=== PATIENT | female | born 1995 | race Caucasian/White ===

== ENCOUNTER 2016-05-24 08:54 | Emergency (ER) | payer SELFPAY ==
[2016-05-24 09:43] LABS: BASO % 0.5 % (0.0-1.0); EOS # 0.2 K/mm3 (0.0-0.50); EOS % 4.1 % (0.0-3.0); LARGE UNSTAINED CELL # 0.2 K/mm3 (0.0-0.4); LARGE UNSTAINED CELL % 3.9 % (0.0-4.0); LYMPH # 2.5 K/mm3 (1.5-6.5); LYMPH % 40.5 % (24.0-44.0); MEAN CORPUSCULAR HEMOGLOBIN 29.9 pg (27.0-33.0); MEAN CORPUSCULAR HGB CONC 34.6 g/dl (32.0-36.5); MEAN CORPUSCULAR VOLUME 86.2 fl (80.0-96.0); MONO # 0.3 K/mm3 (0.0-0.8); MONO % 5.3 % (0.0-5.0); NEUTROPHILS # 2.8 K/mm3 (1.8-7.7); NEUTROPHILS % 45.7 % (36.0-66.0); PLATELET COUNT, AUTOMATED 255 k/mm3 (150-450); RED CELL DISTRIBUTION WIDTH 12.7 % (11.5-14.5); WHITE BLOOD COUNT 6.2 K/mm3 (4.0-10.0)
[2016-05-24] MEDS ORDERED: KETOROLAC 30 MG/ML VIAL (J1885) As Ordered ONE (09:44)
[2016-05-24] MEDS ORDERED: ONDANSETRON 4MG/2ML VIAL (J2405) As Ordered ONE (09:44)
[2016-05-24 10:00] LABS: ALBUMIN 4.3 GM/DL (3.2-5.2); ALBUMIN/GLOBULIN RATIO 1.26 (1.00-1.93); ALKALINE PHOSPHATASE 97 U/L (45-117); ALT/SGPT 25 U/L (12-78); AMYLASE 36 U/L (25-115); ANION GAP 11 MEQ/L (8-16); AST/SGOT 16 U/L (15-37); BILIRUBIN,DIRECT 0.1 MG/DL (0.0-0.2); BILIRUBIN,TOTAL 0.4 MG/DL (0.2-1.0); BLOOD UREA NITROGEN 12 MG/DL (7-18); CALCIUM LEVEL 9.3 MG/DL (8.5-10.1); CARBON DIOXIDE LEVEL 28 MEQ/L (21-32); CHLORIDE LEVEL 104 MEQ/L (98-107); CREATININE FOR GFR 0.85 MG/DL (0.55-1.02); GLOMERULAR FILTRATION RATE > 60.0 (>60); GLUCOSE, FASTING 87 MG/DL (70-105); POTASSIUM SERUM 3.6 MEQ/L (3.5-5.1); SODIUM LEVEL 143 MEQ/L (136-145); TOTAL PROTEIN 7.7 GM/DL (6.4-8.2)
--- NOTE | 2016-05-24 10:35 | REP ---
Right upper quadrant sonography: History: Biliary colic. Findings: Scanning through the right upper quadrant of the abdomen demonstrates a normal sized thin-walled gallbladder without evidence of stone or polyp. Common bile duct is normal measuring 0.3 cm in greatest diameter. No focal liver lesion is seen. Pancreas is unremarkable. There is no evidence of ascites or right renal abnormality. The right kidney measures 9.7 x 5.0 x 3.9 cm. Impression: Negative right upper quadrant sonography. Signed by Stephen Jang MD 05/24/2016 10:26 A
--- NOTE | 2016-05-24 11:41 | EDDOCDS ---
Physician Documentation [facility] Name: Sandie Ledbetter Age: 20 yrs Sex: Female : 1995 Arrival Date: 05/24/2016 Time: 08:54 Bed I2 / M2 Private MD: Disposition: 05/24/16 11:32 Discharged to Home/Self Care. Impression: Nausea with vomiting, unspecified, Diarrhea, unspecified, Upper abdominal pain, unspecified - ruq. - Condition is Stable. - Discharge Instructions: Diarrhea, Nausea and Vomiting. - Prescriptions for ZOFRAN ODT 4 mg Oral - dissolve 1 tablet by ORAL route 3-4 times daily As needed do not chew, do not swallow whole; 20 tablet. - Medication Reconciliation, Local Pharmacy Hours form. - Follow up: Emergency Department; When: As needed; Reason: Worsening of conditions. [facility]; When: Call to arrange an appointment; Reason: Recheck today's complaints, Continuance of care, To establish care. - Problem is new. - Symptoms have improved. - Notes: YOUR LABWORK AND ULTRASOUND DID NOT SHOW ANY ABNORMALITIES TODAY. PLEASE FOLLOW UP WITH PRIMARY CARE IN THE NEXT FEW DAYS TO RECHECK YOUR SYMPTOMS. ANY WORSENING SYMPTOMS, PLEASE RETURN TO THE ER. Historical: - Allergies: no known allergies; - Home Meds: 1. none - PMHx: none; - PSHx: none; - Social history: Smoking status: Patient uses tobacco products, heavy tobacco smoker. No barriers to communication noted, Speaks appropriately for age. - Family history: Not pertinent. - : The pt / caregiver states he / she is not on anticoagulants. Home medication list is obtained from the patient. - Exposure Risk Screening:: None identified. 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 (152.40 cm) (R); Pain 0/10; 11:33 BP 117 / 67; Pulse 80; Resp 18; Temp 98.4; Pulse Ox 98% ; jam1 09:03 Body Mass Index 23.83 (55.34 kg, 152.40 cm) ml6 MDM: 09:21 NS 0.9% 1000 ml IV at bolus once ordered. dt4 09:21 Ondansetron 4 mg IVP once ordered. dt4 09:21 ketorolac 30 mg IVP once ordered. dt4 09:21 IV Saline Lock ordered. dt4 09:21 Undress patient appropriately for examination ordered. dt4 09:22 Amylase Ordered. EDMS 09:22 Basic Metabolic Profile Ordered. EDMS 09:22 CBC with Diff Ordered. EDMS 09:22 Lipase Ordered. EDMS 09:22 Liver Profile Ordered. EDMS 09:22 Urinalysis Ordered. EDMS 09:22 CRP Ordered. EDMS 09:22 Urine Culture Ordered. EDMS 09:22 US Abd Limited Ordered. EDMS 09:22 NOTHING BY MOUTH+DIET ordered. EDMS 09:44 Consult PFS/PSA/Sprinkler Installer ordered. dt4 10:21 Financial registration complete. lg 10:52 [facility] Payment Agreement was scanned into [employer] and attached to record. lg 11:15 Consult PFS/PSA/Sprinkler Installer complete. dls Administered Medications: 09:45 Drug: NS 0.9% 1000 ml [sodium chloride 0.9 % intravenous solution] Route: IV; Rate: ttb bolus; Site: left antecubital; 09:50 Drug: ketorolac 30 mg [ketorolac 30 mg/mL (1 mL) injection solution (1 mL)] Route: IVP; ttb Site: left antecubital; 09:52 Drug: Ondansetron 4 mg [ondansetron HCl 2 mg/mL intravenous solution (2 mL)] Route: ttb IVP; Site: left antecubital; Signatures: Dispatcher [facility] Sahara Frank, RN RN dls Parrish Padgett, Reg Reg lg Leif Arana RN RN ml6 Samantha Mary RN RN ttb Glenna Rosenberg PA-C PA-C dt4 The chart was reviewed and I authenticate all verbal orders and agree with the evaluation and treatment provided.Attachments: 10:52 [facility] Payment Agreement lg MTDD
--- NOTE | 2016-05-24 11:41 | EDDOCDS ---
Nurse's Notes [facility] Name: Sandie Ledbetter Age: 20 yrs Sex: Female : 1995 Arrival Date: 05/24/2016 Time: 08:54 Bed I2 / M2 Private MD: Diagnosis: Nausea with vomiting, unspecified;Diarrhea, unspecified;Upper abdominal pain, unspecified-ruq Presentation: 05/24 09:02 Presenting complaint: Patient states: states n/v/d x 2 days, denies abd pain. Adult ml6 Sepsis Screening: The patient does not have new or worsening altered mentation. Patient's respiratory rate is less than 22. Systolic blood pressure is greater than 100. Patient has a qSOFA score of 0- Negative Sepsis Screen. Suicide/Homicide risk assessment- the patient denies having any suicidal and/or homicidal ideations and does not present with any other emotional, behavioral or mental health complaints. Status: Patient is not a security services manager or dependent. Transition of care: patient was not received from another setting of care. 09:02 Acuity: FANY Level 4 ml6 09:02 Method Of Arrival: Walkin/Carried/Asstd ml6 09:25 Acuity level changed due to complexity of care. ml6 09:25 Acuity: FANY Level 3 ml6 Triage Assessment: 09:04 General: Appears in no apparent distress, Behavior is appropriate for age, cooperative. ml6 Pain: Denies pain. HIV screening NA for this visit Offered previously. GI: Abdomen is flat, non- distended Bowel sounds present X 4 quads. Abd is soft and non tender X 4 quads. Reports diarrhea, nausea, vomiting. 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 none - PMHx: none; - PSHx: none; - Social history: Smoking status: Patient uses tobacco products, heavy tobacco smoker. No barriers to communication noted, Speaks appropriately for age. - Family history: Not pertinent. - : The pt / caregiver states he / she is not on anticoagulants. Home medication list is obtained from the patient. - Exposure Risk Screening:: None identified. Screenin:41 Screening information is obtained from the patient. Fall risk: No risks identified. ttb Assistance ADL's: requires no assistance with activities of daily living. Abuse/DV Screen: The patient / caregiver reports he/she is: not in a situation that causes fear, pain or injury. Nutritional screening: No deficits noted. Advance Directives: Currently, there is no health care proxy. home support is adequate. Assessment: 09:41 General: Appears in no apparent distress, uncomfortable, well nourished, well groomed, ttb Behavior is appropriate for age, cooperative, pleasant. Pain: Location: lower abd/pelvis. Neurological: Level of Consciousness is awake, alert, Oriented to person, place, time, Speech is normal, Facial symmetry appears normal. Cardiovascular: Heart tones S1 S2 present Chest pain is denied. Respiratory: No deficits noted. Airway is patent Respiratory effort is even, unlabored, Breath sounds are clear bilaterally. Denies cough, shortness of breath. GI: Bowel sounds present X 4 quads. Reports diarrhea, lower abdominal pain, nausea, vomiting, Denies constipation, intolerance of fluids. : Denies burning with urination, urinary frequency, urgency. Derm: Skin is normal. Injury Description: No known injury. 09:50 General: pt given meds as ordered. Pt emotional regarding home situations/social ttb situations. PA aware and PSA consult ordered. Pt interested in speaking to someone. . 11:21 General: Edis Wood PSA in to speak with pt.. ann Social Work Consult: 11:31 Social Work Note: Pt presented c/o general illness. 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 Pt also reports she has no insurance at this time. Pt denies SI/HI, is accompanied by her mother. Pt provided with referrals, emergency #'s. No further intervention required at this time. Vital Signs: 09:03 BP 116 / 75; Pulse 92; Resp 16; Temp 98.1(O); Pulse Ox 99% on R/A; Weight 55.34 kg (R); ml6 Height 5 ft. (152.40 cm) (R); Pain 0/10; 11:33 BP 117 / 67; Pulse 80; Resp 18; Temp 98.4; Pulse Ox 98% ; jam1 09:03 Body Mass Index 23.83 (55.34 kg, 152.40 cm) ml6 Vitals: 09:03 Log In Time: May 24, 2016 at 08:54. ml6 ED Course: 08:57 Patient visited by Don Urias Reg. mpb 08:57 Patient moved to Waiting mpb 09:03 Triage Initiated ml6 09:04 Sahara Murray RN is Primary Nurse. ml6 09:04 Patient moved to I2 / M2 ml6 09:13 Glenna Rosenberg PA-C is PHCP. dt4 09:13 Mitul Doyle MD is Attending Physician. dt4 09:13 Patient visited by Glenna Rosenberg PA-C. dt4 09:41 The patient / caregiver is instructed regarding the plan of care and ED course. Patient ttb has correct armband on for positive identification. Placed in gown. Call light in reach. Side rails up X 1. 09:41 Inserted peripheral IV: 20gauge IV in left antecubital area and blood collected. ttb Patient tolerated the procedure well. Labs drawn. (by ED staff). Urine collected. Clean catch specimen. 09:46 Urinalysis Sent. jam1 09:46 Urine Culture Sent. jam1 09:52 Patient visited by Samantha Mary RN. ttb 09:57 Patient visited by Samantha Mary RN. ttb 10:04 Patient moved to Ultrasound br3 10:08 Patient has correct armband on for positive identification. Call light in reach. Side jam1 rails up X 1. Door closed. 10:18 Patient moved to I2 / M2 br3 10:40 US Abd Limited Returned. EDMS 10:52 [facility] [place] Payment Agreement was scanned into [employer] and attached to record. lg 11:01 Patient visited by Sahara Murray RN. dls 11:32 [facility] is Referral Physician. dt4 11:39 Discontinued IV lock intact, bleeding controlled, pressure dressing applied, No dls redness/swelling at site. 11:40 No procedures done that require assistance. dls Administered Medications: 09:45 Drug: NS 0.9% 1000 ml [sodium chloride 0.9 % intravenous solution] Route: IV; Rate: ttb bolus; Site: left antecubital; 09:50 Drug: ketorolac 30 mg [ketorolac 30 mg/mL (1 mL) injection solution (1 mL)] Route: IVP; ttb Site: left antecubital; 09:52 Drug: Ondansetron 4 mg [ondansetron HCl 2 mg/mL intravenous solution (2 mL)] Route: ttb IVP; Site: left antecubital; Order Results: Lab Order: Amylase; SPEC'05/24/16 09:34 Test: AMYLASE; Value: 36; Range: 25-115; Units: U/L; Status: F Lab Order: Basic Metabolic Profile; SPEC05/24/16 09:34 Test: GLUCOSE, FASTING; Value: 87; Range: 70-105; Units: MG/DL; Status: F Test: BLOOD UREA NITROGEN; Value: 12; Range: 7-18; Units: MG/DL; Status: F Test: CREATININE FOR GFR; Value: 0.85; Range: 0.55-1.02; Units: MG/DL; Status: F Test: GLOMERULAR FILTRATION RATE; Value: > 60.0; Range: >60; Status: F Test: SODIUM LEVEL; Value: 143; Range: 136-145; Units: MEQ/L; Status: F Test: POTASSIUM SERUM; Value: 3.6; Range: 3.5-5.1; Units: MEQ/L; Status: F Test: CHLORIDE LEVEL; Value: 104; Range: 98-107; Units: MEQ/L; Status: F Test: CARBON DIOXIDE LEVEL; Value: 28; Range: 21-32; Units: MEQ/L; Status: F Test: ANION GAP; Value: 11; Range: 8-16; Units: MEQ/L; Status: F Test: CALCIUM LEVEL; Value: 9.3; Range: 8.5-10.1; Units: MG/DL; Status: F Test Note: ; Units are mL/min/1.73 m2 Chronic Kidney Disease Staging per NKF: Stage I & II GFR >=60 Normal to Mildly Decreased Stage III GFR 30-59 Moderately Decreased Stage IV GFR 15-29 Severely Decreased Stage V GFR <15 Very Little GFR Left ESRD GFR <15 on PAPER TWISTER Lab Order: CBC with Diff; SPEC05/24/16 09:34 Test: WHITE BLOOD COUNT; Value: 6.2; Range: 4.0-10.0; Units: K/mm3; Status: F Test: RED BLOOD COUNT; Value: 4.78; Range: 4.00-5.40; Units: M/mm3; Status: F Test: HEMOGLOBIN; Value: 14.3; Range: 12.0-16.0; Units: g/dl; Status: F Test: HEMATOCRIT; Value: 41.2; Range: 36.0-47.0; Units: %; Status: F Test: MEAN CORPUSCULAR VOLUME; Value: 86.2; Range: 80.0-96.0; Units: fl; Status: F Test: MEAN CORPUSCULAR HEMOGLOBIN; Value: 29.9; Range: 27.0-33.0; Units: pg; Status: F Test: MEAN CORPUSCULAR HGB CONC; Value: 34.6; Range: 32.0-36.5; Units: g/dl; Status: F Test: RED CELL DISTRIBUTION WIDTH; Value: 12.7; Range: 11.5-14.5; Units: %; Status: F Test: PLATELET COUNT, AUTOMATED; Value: 255; Range: 150-450; Units: k/mm3; Status: F Test: NEUTROPHILS %; Value: 45.7; Range: 36.0-66.0; Units: %; Status: F Test: LYMPH %; Value: 40.5; Range: 24.0-44.0; Units: %; Status: F Test: MONO %; Value: 5.3; Range: 0.0-5.0; Abnormal: Above high normal; Units: %; Status: F Test: EOS %; Value: 4.1; Range: 0.0-3.0; Abnormal: Above high normal; Units: %; Status: F Test: BASO %; Value: 0.5; Range: 0.0-1.0; Units: %; Status: F Test: LARGE UNSTAINED CELL %; Value: 3.9; Range: 0.0-4.0; Units: %; Status: F Test: NEUTROPHILS #; Value: 2.8; Range: 1.8-7.7; Units: K/mm3; Status: F Test: LYMPH #; Value: 2.5; Range: 1.5-6.5; Units: K/mm3; Status: F Test: MONO #; Value: 0.3; Range: 0.0-0.8; Units: K/mm3; Status: F Test: EOS #; Value: 0.2; Range: 0.0-0.50; Units: K/mm3; Status: F Test: BASO #; Value: 0.0; Range: 0.0-0.2; Units: K/mm3; Status: F Test: LARGE UNSTAINED CELL #; Value: 0.2; Range: 0.0-0.4; Units: K/mm3; Status: F Lab Order: Lipase; SPEC' 05/24/16 09:34 Test: LIPASE; Value: 125; Range: 73-393; Units: U/L; Status: F Lab Order: Liver Profile; [facility]'M 05/24/16 09:34 Test: AST/SGOT; Value: 16; Range: 15-37; Units: U/L; Status: F Test: ALT/SGPT; Value: 25; Range: 12-78; Units: U/L; Status: F Test: ALKALINE PHOSPHATASE; Value: 97; Range: 45-117; Units: U/L; Status: F Test: BILIRUBIN,TOTAL; Value: 0.4; Range: 0.2-1.0; Units: MG/DL; Status: F Test: BILIRUBIN,DIRECT; Value: 0.1; Range: 0.0-0.2; Units: MG/DL; Status: F Test: TOTAL PROTEIN; Value: 7.7; Range: 6.4-8.2; Units: GM/DL; Status: F Test: ALBUMIN; Value: 4.3; Range: 3.2-5.2; Units: GM/DL; Status: F Test: ALBUMIN/GLOBULIN RATIO; Value: 1.26; Range: 1.00-1.93; Status: F Lab Order: Urinalysis; [facility]' 05/24/16 09:34 Test: APPEARANCE, URINE; Value: CLOUDY; Range: CLEAR; Abnormal: Above high normal; Status: F Test: COLOR, URINE; Value: RANDELL; Range: YELLOW; Status: F Test: PH,URINE; Value: 6.0; Range: 5.0-9.0; Units: UNITS; Status: F Test: SPECIFIC GRAVITY URINE AUTO; Value: 1.027; Range: 1.002-1.035; Status: F Test: PROTEIN, URINE AUTO; Value: 2+; Range: NEGATIVE; Abnormal: Above high normal; Units: mg/dL; Status: F Test: GLUCOSE, URINE (UA) AUTO; Value: NEGATIVE; Range: NEGATIVE; Units: mg/dL; Status: F Test: KETONE, URINE AUTO; Value: NEGATIVE; Range: NEGATIVE; Units: mg/dL; Status: F Test: UROBILINOGEN, URINE AUTO; Value: 0.2; Range: 0.0-2.0; Units: mg/dL; Status: F Test: BILIRUBIN, URINE AUTO; Value: NEGATIVE; Range: NEGATIVE; Status: F Test: NITRITE, URINE AUTO; Value: NEGATIVE; Range: NEGATIVE; Status: F Test: LEUKOCYTE ESTERASE, URINE AUTO; Value: NEGATIVE; Range: NEGATIVE; Status: F Test: BLOOD, URINE BLOOD; Value: 3+; Range: NEGATIVE; Abnormal: Above high normal; Status: F Test: WBC, URINE AUTO; Value: 9; Range: 0-3; Abnormal: Above high normal; Units: /HPF; Status: F Test: RBC, URINE AUTO; Value: 141; Range: 0-3; Abnormal: Above high normal; Units: /HPF; Status: F Test: BACTERIA, URINE AUTO; Value: 1+; Range: NEGATIVE; Abnormal: Above high normal; Status: F Test: SQUAMOUS EPITHELIAL CELL UR AU; Value: 6; Range: 0-6; Units: /HPF; Status: F Test: MUCUS, URINE; Value: LARGE; Range: NEGATIVE; Status: F Test: HYALINE CAST, URINE AUTO; Value: 0; Range: 0-1; Units: /LPF; Status: F Lab Order: CRP; SPEC'M 05/24/16 09:34 Test: C REACTIVE PROTEIN QUANTITATIV; Value: 1.13; Range: 0.00-0.30; Abnormal: Above high normal; Units: MG/DL; Status: F Radiology Order: US Abd Limited Test: US Abd Limited REASON FOR EXAMINATION: Biliary Colic; Right upper quadrant sonography:; ; History: Biliary colic.; ; Findings: Scanning through the right upper quadrant of the abdomen demonstrates; a normal sized thin-walled gallbladder without evidence of stone or polyp.; Common bile duct is normal measuring 0.3 cm in greatest diameter. No focal liver; lesion is seen. Pancreas is unremarkable. There is no evidence of ascites or; right renal abnormality. The right kidney measures 9.7 x 5.0 x 3.9 cm.; ; Impression:; ; Negative right upper quadrant sonography.; ; ; Signed by; Stephen Jang MD 05/24/2016 10:26 A; Outcome: 09:41 Ultrasound Study completed. ttb 11:32 Discharge ordered by Provider. dt4 11:39 Discharge Assessment: Patient awake, alert and oriented x 3. No cognitive and/or dls functional deficits noted. Patient verbalized understanding of disposition instructions. patient administered narcotics - no. The following High Risk Discharge criteria are identified: None. Discharged to home ambulatory, with family. Condition: stable. Discharge instructions given to patient, Instructed on discharge instructions, follow up and referral plans. Demonstrated understanding of instructions, Pt was receptive of discharge instructions/ teaching. Property sent home with patient. 11:40 Patient left the ED. dls Signatures: Dispatcher [employer] EDMS Sahara Murray, RN RN dls Dolly Rondon, CHEMICAL EDUCATOR CHEMICAL EDUCATOR jam1 Edis Wood, PSA PSA ac Parrish Padgett, Reg Reg lg Leif Arana RN RN ml6 Toya Washington br3 Samantha Mary, TIFFANIE RN ttb Glenna Rosenberg, CORINAN PACory dt4 Don Urias, Reg Reg mpb MTDD
--- NOTE | 2016-05-24 11:44 | EDDOCDS ---
Physician Documentation [facility] Name: Sandie Ledbetter Age: 20 yrs Sex: Female : 1995 Arrival Date: 05/24/2016 Time: 08:54 Bed I2 / M2 Private MD: Disposition: 05/24/16 11:32 Discharged to Home/Self Care. Impression: Nausea with vomiting, unspecified, Diarrhea, unspecified, Upper abdominal pain, unspecified - ruq. - Condition is Stable. - Discharge Instructions: Diarrhea, Nausea and Vomiting. - Prescriptions for ZOFRAN ODT 4 mg Oral - dissolve 1 tablet by ORAL route 3-4 times daily As needed do not chew, do not swallow whole; 20 tablet. - Medication Reconciliation, Work Release Form - 2 day, Local Pharmacy Hours form. - Follow up: Emergency Department; When: As needed; Reason: Worsening of conditions. [facility]; When: Call to arrange an appointment; Reason: Recheck today's complaints, Continuance of care, To establish care. - Problem is new. - Symptoms have improved. - Notes: YOUR LABWORK AND ULTRASOUND DID NOT SHOW ANY ABNORMALITIES TODAY. PLEASE FOLLOW UP WITH PRIMARY CARE IN THE NEXT FEW DAYS TO RECHECK YOUR SYMPTOMS. ANY WORSENING SYMPTOMS, PLEASE RETURN TO THE ER. Historical: - Allergies: no known allergies; - Home Meds: 1. none - PMHx: none; - PSHx: none; - Social history: Smoking status: Patient uses tobacco products, heavy tobacco smoker. No barriers to communication noted, Speaks appropriately for age. - Family history: Not pertinent. - : The pt / caregiver states he / she is not on anticoagulants. Home medication list is obtained from the patient. - Exposure Risk Screening:: None identified. 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 (152.40 cm) (R); Pain 0/10; 11:33 BP 117 / 67; Pulse 80; Resp 18; Temp 98.4; Pulse Ox 98% ; jam1 09:03 Body Mass Index 23.83 (55.34 kg, 152.40 cm) ml6 MDM: 09:21 NS 0.9% 1000 ml IV at bolus once ordered. dt4 09:21 Ondansetron 4 mg IVP once ordered. dt4 09:21 ketorolac 30 mg IVP once ordered. dt4 09:21 IV Saline Lock ordered. dt4 09:21 Undress patient appropriately for examination ordered. dt4 09:22 Amylase Ordered. EDMS 09:22 Basic Metabolic Profile Ordered. EDMS 09:22 CBC with Diff Ordered. EDMS 09:22 Lipase Ordered. EDMS 09:22 Liver Profile Ordered. EDMS 09:22 Urinalysis Ordered. EDMS 09:22 CRP Ordered. EDMS 09:22 Urine Culture Ordered. EDMS 09:22 US Abd Limited Ordered. EDMS 09:22 NOTHING BY MOUTH+DIET ordered. EDMS 09:44 Consult PFS/PSA/Wrecker Driver ordered. dt4 10:21 Financial registration complete. lg 10:52 [facility] Payment Agreement was scanned into [employer] and attached to record. lg 11:15 Consult PFS/PSA/Wrecker Driver complete. dls Administered Medications: 09:45 Drug: NS 0.9% 1000 ml [sodium chloride 0.9 % intravenous solution] Route: IV; Rate: ttb bolus; Site: left antecubital; 09:50 Drug: ketorolac 30 mg [ketorolac 30 mg/mL (1 mL) injection solution (1 mL)] Route: IVP; ttb Site: left antecubital; 09:52 Drug: Ondansetron 4 mg [ondansetron HCl 2 mg/mL intravenous solution (2 mL)] Route: ttb IVP; Site: left antecubital; Signatures: Dispatcher [employer] Sahara Frank RN RN dls Parrish Padgett, Reg Reg lg Leif Arana RN RN ml6 Samantha Mary RN RN ttb Glenna Rosenberg PA-C PA-C dt4 The chart was reviewed and I authenticate all verbal orders and agree with the evaluation and treatment provided.Attachments: 10:52 [facility] Payment Agreement lg MTDD
--- NOTE | 2016-05-24 11:44 | EDDOCDS ---
Nurse's Notes [facility] Name: Sandie Ledbetter Age: 20 yrs Sex: Female : 1995 Arrival Date: 05/24/2016 Time: 08:54 Bed I2 / M2 Private MD: Diagnosis: Nausea with vomiting, unspecified;Diarrhea, unspecified;Upper abdominal pain, unspecified-ruq Presentation: 05/24 09:02 Presenting complaint: Patient states: states n/v/d x 2 days, denies abd pain. Adult ml6 Sepsis Screening: The patient does not have new or worsening altered mentation. Patient's respiratory rate is less than 22. Systolic blood pressure is greater than 100. Patient has a qSOFA score of 0- Negative Sepsis Screen. Suicide/Homicide risk assessment- the patient denies having any suicidal and/or homicidal ideations and does not present with any other emotional, behavioral or mental health complaints. Status: Patient is not a surgical services coordinator or dependent. Transition of care: patient was not received from another setting of care. 09:02 Acuity: FANY Level 4 ml6 09:02 Method Of Arrival: Walkin/Carried/Asstd ml6 09:25 Acuity level changed due to complexity of care. ml6 09:25 Acuity: FANY Level 3 ml6 Triage Assessment: 09:04 General: Appears in no apparent distress, Behavior is appropriate for age, cooperative. ml6 Pain: Denies pain. HIV screening NA for this visit Offered previously. GI: Abdomen is flat, non- distended Bowel sounds present X 4 quads. Abd is soft and non tender X 4 quads. Reports diarrhea, nausea, vomiting. 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 none - PMHx: none; - PSHx: none; - Social history: Smoking status: Patient uses tobacco products, heavy tobacco smoker. No barriers to communication noted, Speaks appropriately for age. - Family history: Not pertinent. - : The pt / caregiver states he / she is not on anticoagulants. Home medication list is obtained from the patient. - Exposure Risk Screening:: None identified. Screenin:41 Screening information is obtained from the patient. Fall risk: No risks identified. ttb Assistance ADL's: requires no assistance with activities of daily living. Abuse/DV Screen: The patient / caregiver reports he/she is: not in a situation that causes fear, pain or injury. Nutritional screening: No deficits noted. Advance Directives: Currently, there is no health care proxy. home support is adequate. Assessment: 09:41 General: Appears in no apparent distress, uncomfortable, well nourished, well groomed, ttb Behavior is appropriate for age, cooperative, pleasant. Pain: Location: lower abd/pelvis. Neurological: Level of Consciousness is awake, alert, Oriented to person, place, time, Speech is normal, Facial symmetry appears normal. Cardiovascular: Heart tones S1 S2 present Chest pain is denied. Respiratory: No deficits noted. Airway is patent Respiratory effort is even, unlabored, Breath sounds are clear bilaterally. Denies cough, shortness of breath. GI: Bowel sounds present X 4 quads. Reports diarrhea, lower abdominal pain, nausea, vomiting, Denies constipation, intolerance of fluids. : Denies burning with urination, urinary frequency, urgency. Derm: Skin is normal. Injury Description: No known injury. 09:50 General: pt given meds as ordered. Pt emotional regarding home situations/social ttb situations. PA aware and PSA consult ordered. Pt interested in speaking to someone. . 11:21 General: Edis Wood PSA in to speak with pt.. ann Social Work Consult: 11:31 Social Work Note: Pt presented c/o general illness. 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 Pt also reports she has no insurance at this time. Pt denies SI/HI, is accompanied by her mother. Pt provided with referrals, emergency #'s. No further intervention required at this time. Vital Signs: 09:03 BP 116 / 75; Pulse 92; Resp 16; Temp 98.1(O); Pulse Ox 99% on R/A; Weight 55.34 kg (R); ml6 Height 5 ft. (152.40 cm) (R); Pain 0/10; 11:33 BP 117 / 67; Pulse 80; Resp 18; Temp 98.4; Pulse Ox 98% ; jam1 09:03 Body Mass Index 23.83 (55.34 kg, 152.40 cm) ml6 Vitals: 09:03 Log In Time: May 24, 2016 at 08:54. ml6 ED Course: 08:57 Patient visited by Don Urias Reg. mpb 08:57 Patient moved to Waiting mpb 09:03 Triage Initiated ml6 09:04 Sahara Murray RN is Primary Nurse. ml6 09:04 Patient moved to I2 / M2 ml6 09:13 Glenna Rosenberg PA-C is PHCP. dt4 09:13 Mitul Doyle MD is Attending Physician. dt4 09:13 Patient visited by Glenna Rosenberg PA-C. dt4 09:41 The patient / caregiver is instructed regarding the plan of care and ED course. Patient ttb has correct armband on for positive identification. Placed in gown. Call light in reach. Side rails up X 1. 09:41 Inserted peripheral IV: 20gauge IV in left antecubital area and blood collected. ttb Patient tolerated the procedure well. Labs drawn. (by ED staff). Urine collected. Clean catch specimen. 09:46 Urinalysis Sent. jam1 09:46 Urine Culture Sent. jam1 09:52 Patient visited by Samantha Mary RN. ttb 09:57 Patient visited by Samantha Mary RN. ttb 10:04 Patient moved to Ultrasound br3 10:08 Patient has correct armband on for positive identification. Call light in reach. Side jam1 rails up X 1. Door closed. 10:18 Patient moved to I2 / M2 br3 10:40 US Abd Limited Returned. EDMS 10:52 [facility] was scanned into EpicTopic and attached to record. lg 11:01 Patient visited by Sahara Murray RN. dls 11:32 [facility] is Referral Physician. dt4 11:39 Discontinued IV lock intact, bleeding controlled, pressure dressing applied, No dls redness/swelling at site. 11:40 No procedures done that require assistance. dls Administered Medications: 09:45 Drug: NS 0.9% 1000 ml [sodium chloride 0.9 % intravenous solution] Route: IV; Rate: ttb bolus; Site: left antecubital; 09:50 Drug: ketorolac 30 mg [ketorolac 30 mg/mL (1 mL) injection solution (1 mL)] Route: IVP; ttb Site: left antecubital; 09:52 Drug: Ondansetron 4 mg [ondansetron HCl 2 mg/mL intravenous solution (2 mL)] Route: ttb IVP; Site: left antecubital; Order Results: Lab Order: Amylase; SPEC'05/24/16 09:34 Test: AMYLASE; Value: 36; Range: 25-115; Units: U/L; Status: F Lab Order: Basic Metabolic Profile; SPEC05/24/16 09:34 Test: GLUCOSE, FASTING; Value: 87; Range: 70-105; Units: MG/DL; Status: F Test: BLOOD UREA NITROGEN; Value: 12; Range: 7-18; Units: MG/DL; Status: F Test: CREATININE FOR GFR; Value: 0.85; Range: 0.55-1.02; Units: MG/DL; Status: F Test: GLOMERULAR FILTRATION RATE; Value: > 60.0; Range: >60; Status: F Test: SODIUM LEVEL; Value: 143; Range: 136-145; Units: MEQ/L; Status: F Test: POTASSIUM SERUM; Value: 3.6; Range: 3.5-5.1; Units: MEQ/L; Status: F Test: CHLORIDE LEVEL; Value: 104; Range: 98-107; Units: MEQ/L; Status: F Test: CARBON DIOXIDE LEVEL; Value: 28; Range: 21-32; Units: MEQ/L; Status: F Test: ANION GAP; Value: 11; Range: 8-16; Units: MEQ/L; Status: F Test: CALCIUM LEVEL; Value: 9.3; Range: 8.5-10.1; Units: MG/DL; Status: F Test Note: ; Units are mL/min/1.73 m2 Chronic Kidney Disease Staging per NKF: Stage I & II GFR >=60 Normal to Mildly Decreased Stage III GFR 30-59 Moderately Decreased Stage IV GFR 15-29 Severely Decreased Stage V GFR <15 Very Little GFR Left ESRD GFR <15 on FIRE SAFETY DIRECTOR Lab Order: CBC with Diff; SPEC05/24/16 09:34 Test: WHITE BLOOD COUNT; Value: 6.2; Range: 4.0-10.0; Units: K/mm3; Status: F Test: RED BLOOD COUNT; Value: 4.78; Range: 4.00-5.40; Units: M/mm3; Status: F Test: HEMOGLOBIN; Value: 14.3; Range: 12.0-16.0; Units: g/dl; Status: F Test: HEMATOCRIT; Value: 41.2; Range: 36.0-47.0; Units: %; Status: F Test: MEAN CORPUSCULAR VOLUME; Value: 86.2; Range: 80.0-96.0; Units: fl; Status: F Test: MEAN CORPUSCULAR HEMOGLOBIN; Value: 29.9; Range: 27.0-33.0; Units: pg; Status: F Test: MEAN CORPUSCULAR HGB CONC; Value: 34.6; Range: 32.0-36.5; Units: g/dl; Status: F Test: RED CELL DISTRIBUTION WIDTH; Value: 12.7; Range: 11.5-14.5; Units: %; Status: F Test: PLATELET COUNT, AUTOMATED; Value: 255; Range: 150-450; Units: k/mm3; Status: F Test: NEUTROPHILS %; Value: 45.7; Range: 36.0-66.0; Units: %; Status: F Test: LYMPH %; Value: 40.5; Range: 24.0-44.0; Units: %; Status: F Test: MONO %; Value: 5.3; Range: 0.0-5.0; Abnormal: Above high normal; Units: %; Status: F Test: EOS %; Value: 4.1; Range: 0.0-3.0; Abnormal: Above high normal; Units: %; Status: F Test: BASO %; Value: 0.5; Range: 0.0-1.0; Units: %; Status: F Test: LARGE UNSTAINED CELL %; Value: 3.9; Range: 0.0-4.0; Units: %; Status: F Test: NEUTROPHILS #; Value: 2.8; Range: 1.8-7.7; Units: K/mm3; Status: F Test: LYMPH #; Value: 2.5; Range: 1.5-6.5; Units: K/mm3; Status: F Test: MONO #; Value: 0.3; Range: 0.0-0.8; Units: K/mm3; Status: F Test: EOS #; Value: 0.2; Range: 0.0-0.50; Units: K/mm3; Status: F Test: BASO #; Value: 0.0; Range: 0.0-0.2; Units: K/mm3; Status: F Test: LARGE UNSTAINED CELL #; Value: 0.2; Range: 0.0-0.4; Units: K/mm3; Status: F Lab Order: Lipase; SPEC' 05/24/16 09:34 Test: LIPASE; Value: 125; Range: 73-393; Units: U/L; Status: F Lab Order: Liver Profile; [facility] 05/24/16 09:34 Test: AST/SGOT; Value: 16; Range: 15-37; Units: U/L; Status: F Test: ALT/SGPT; Value: 25; Range: 12-78; Units: U/L; Status: F Test: ALKALINE PHOSPHATASE; Value: 97; Range: 45-117; Units: U/L; Status: F Test: BILIRUBIN,TOTAL; Value: 0.4; Range: 0.2-1.0; Units: MG/DL; Status: F Test: BILIRUBIN,DIRECT; Value: 0.1; Range: 0.0-0.2; Units: MG/DL; Status: F Test: TOTAL PROTEIN; Value: 7.7; Range: 6.4-8.2; Units: GM/DL; Status: F Test: ALBUMIN; Value: 4.3; Range: 3.2-5.2; Units: GM/DL; Status: F Test: ALBUMIN/GLOBULIN RATIO; Value: 1.26; Range: 1.00-1.93; Status: F Lab Order: Urinalysis; [facility] 05/24/16 09:34 Test: APPEARANCE, URINE; Value: CLOUDY; Range: CLEAR; Abnormal: Above high normal; Status: F Test: COLOR, URINE; Value: RANDELL; Range: YELLOW; Status: F Test: PH,URINE; Value: 6.0; Range: 5.0-9.0; Units: UNITS; Status: F Test: SPECIFIC GRAVITY URINE AUTO; Value: 1.027; Range: 1.002-1.035; Status: F Test: PROTEIN, URINE AUTO; Value: 2+; Range: NEGATIVE; Abnormal: Above high normal; Units: mg/dL; Status: F Test: GLUCOSE, URINE (UA) AUTO; Value: NEGATIVE; Range: NEGATIVE; Units: mg/dL; Status: F Test: KETONE, URINE AUTO; Value: NEGATIVE; Range: NEGATIVE; Units: mg/dL; Status: F Test: UROBILINOGEN, URINE AUTO; Value: 0.2; Range: 0.0-2.0; Units: mg/dL; Status: F Test: BILIRUBIN, URINE AUTO; Value: NEGATIVE; Range: NEGATIVE; Status: F Test: NITRITE, URINE AUTO; Value: NEGATIVE; Range: NEGATIVE; Status: F Test: LEUKOCYTE ESTERASE, URINE AUTO; Value: NEGATIVE; Range: NEGATIVE; Status: F Test: BLOOD, URINE BLOOD; Value: 3+; Range: NEGATIVE; Abnormal: Above high normal; Status: F Test: WBC, URINE AUTO; Value: 9; Range: 0-3; Abnormal: Above high normal; Units: /HPF; Status: F Test: RBC, URINE AUTO; Value: 141; Range: 0-3; Abnormal: Above high normal; Units: /HPF; Status: F Test: BACTERIA, URINE AUTO; Value: 1+; Range: NEGATIVE; Abnormal: Above high normal; Status: F Test: SQUAMOUS EPITHELIAL CELL UR AU; Value: 6; Range: 0-6; Units: /HPF; Status: F Test: MUCUS, URINE; Value: LARGE; Range: NEGATIVE; Status: F Test: HYALINE CAST, URINE AUTO; Value: 0; Range: 0-1; Units: /LPF; Status: F Lab Order: CRP; SPEC'M 05/24/16 09:34 Test: C REACTIVE PROTEIN QUANTITATIV; Value: 1.13; Range: 0.00-0.30; Abnormal: Above high normal; Units: MG/DL; Status: F Radiology Order: US Abd Limited Test: US Abd Limited REASON FOR EXAMINATION: Biliary Colic; Right upper quadrant sonography:; ; History: Biliary colic.; ; Findings: Scanning through the right upper quadrant of the abdomen demonstrates; a normal sized thin-walled gallbladder without evidence of stone or polyp.; Common bile duct is normal measuring 0.3 cm in greatest diameter. No focal liver; lesion is seen. Pancreas is unremarkable. There is no evidence of ascites or; right renal abnormality. The right kidney measures 9.7 x 5.0 x 3.9 cm.; ; Impression:; ; Negative right upper quadrant sonography.; ; ; Signed by; Stephen Jang MD 05/24/2016 10:26 A; Outcome: 09:41 Ultrasound Study completed. ttb 11:32 Discharge ordered by Provider. dt4 11:39 Discharge Assessment: Patient awake, alert and oriented x 3. No cognitive and/or dls functional deficits noted. Patient verbalized understanding of disposition instructions. patient administered narcotics - no. The following High Risk Discharge criteria are identified: None. Discharged to home ambulatory, with family. Condition: stable. Discharge instructions given to patient, Instructed on discharge instructions, follow up and referral plans. Demonstrated understanding of instructions, Pt was receptive of discharge instructions/ teaching. Property sent home with patient. 11:40 Patient left the ED. dls 11:44 Patient left the ED. dls Signatures: Dispatcher Med[employer] EDMS Sahara Murray, RN RN dls Dolly Rondon, AREA FIELD PERSON AREA FIELD PERSON jam1 Edis Wood, PSA PSA ac Parrish Padgett, Reg Reg lg Leif Arana, TIFFANIE RN ml6 Toya Washington br3 Samantha Mary, TIFFANIE RN ttb Glenna Rosenberg, PA-Adrianna PA-Adrianna dt4 Don Urias, Reg Reg mpb MTDD
--- NOTE | 2016-05-26 12:48 | EDDOCDS ---
Physician Documentation [facility] Name: Sandie Ledbetter Age: 20 yrs Sex: Female : 1995 Arrival Date: 05/24/2016 Time: 08:54 Bed I2 / M2 Private MD: Disposition: 05/24/16 11:32 Discharged to Home/Self Care. Impression: Nausea with vomiting, unspecified, Diarrhea, unspecified, Upper abdominal pain, unspecified - ruq. - Condition is Stable. - Discharge Instructions: Diarrhea, Nausea and Vomiting. - Prescriptions for ZOFRAN ODT 4 mg Oral - dissolve 1 tablet by ORAL route 3-4 times daily As needed do not chew, do not swallow whole; 20 tablet. - Medication Reconciliation, Work Release Form - 2 day, Local Pharmacy Hours form. - Follow up: Emergency Department; When: As needed; Reason: Worsening of conditions. [facility]: [facility]; When: Call to arrange an appointment; Reason: Recheck today's complaints, Continuance of care, To establish care. - Problem is new. - Symptoms have improved. - Notes: YOUR LABWORK AND ULTRASOUND DID NOT SHOW ANY ABNORMALITIES TODAY. PLEASE FOLLOW UP WITH PRIMARY CARE IN THE NEXT FEW DAYS TO RECHECK YOUR SYMPTOMS. ANY WORSENING SYMPTOMS, PLEASE RETURN TO THE ER. Historical: - Allergies: no known allergies; - Home Meds: 1. none - PMHx: none; - PSHx: none; - Social history: Smoking status: Patient uses tobacco products, heavy tobacco smoker. No barriers to communication noted, Speaks appropriately for age. - Family history: Not pertinent. - : The pt / caregiver states he / she is not on anticoagulants. Home medication list is obtained from the patient. - Exposure Risk Screening:: None identified. 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 (152.40 cm) (R); Pain 0/10; 11:33 BP 117 / 67; Pulse 80; Resp 18; Temp 98.4; Pulse Ox 98% ; jam1 09:03 Body Mass Index 23.83 (55.34 kg, 152.40 cm) ml6 MDM: 09:21 NS 0.9% 1000 ml IV at bolus once ordered. dt4 09:21 Ondansetron 4 mg IVP once ordered. dt4 09:21 ketorolac 30 mg IVP once ordered. dt4 09:21 IV Saline Lock ordered. dt4 09:21 Undress patient appropriately for examination ordered. dt4 09:22 Amylase Ordered. EDMS 09:22 Basic Metabolic Profile Ordered. EDMS 09:22 CBC with Diff Ordered. EDMS 09:22 Lipase Ordered. EDMS 09:22 Liver Profile Ordered. EDMS 09:22 Urinalysis Ordered. EDMS 09:22 CRP Ordered. EDMS 09:22 Urine Culture Ordered. EDMS 09:22 US Abd Limited Ordered. EDMS 09:22 NOTHING BY MOUTH+DIET ordered. EDMS 09:44 Consult PFS/PSA/Day Worker ordered. dt4 10:21 Financial registration complete. lg 10:52 [facility] [place] Payment Agreement was scanned into Directworks and attached to record. lg 11:15 Consult PFS/PSA/Day Worker complete. dls 12:04 T-Sheet-- Draft Copy was scanned into Directworks and attached to record. [facility] 12:23 Radiology Report was scanned into Directworks and attached to record. gb Administered Medications: 09:45 Drug: NS 0.9% 1000 ml [sodium chloride 0.9 % intravenous solution] Route: IV; Rate: ttb bolus; Site: left antecubital; 09:50 Drug: ketorolac 30 mg [ketorolac 30 mg/mL (1 mL) injection solution (1 mL)] Route: IVP; ttb Site: left antecubital; 09:52 Drug: Ondansetron 4 mg [ondansetron HCl 2 mg/mL intravenous solution (2 mL)] Route: ttb IVP; Site: left antecubital; Signatures: Dispatcher MedHost EDMS Sahara Murray RN RN dls Shreya Sevilla, Reg Reg gb Parrish Padgett, Reg Reg lg Leif Arana RN RN ml6 Samantha Mary RN RN ttb Glenna Rosenberg PA-C PACory dt4 Margaret Miller [facility] The chart was reviewed and I authenticate all verbal orders and agree with the evaluation and treatment provided.Attachments: 10:52 [facility] Payment Agreement lg 12:04 T-Sheet-- Draft Copy se Chart Complete MTDD
--- NOTE | 2016-05-26 12:48 | EDDOCDS ---
Physician Documentation [facility] Name: Sandie Ledbetter Age: 20 yrs Sex: Female : 1995 Arrival Date: 05/24/2016 Time: 08:54 Bed I2 / M2 Private MD: Disposition: 05/24/16 11:32 Discharged to Home/Self Care. Impression: Nausea with vomiting, unspecified, Diarrhea, unspecified, Upper abdominal pain, unspecified - ruq. - Condition is Stable. - Discharge Instructions: Diarrhea, Nausea and Vomiting. - Prescriptions for ZOFRAN ODT 4 mg Oral - dissolve 1 tablet by ORAL route 3-4 times daily As needed do not chew, do not swallow whole; 20 tablet. - Medication Reconciliation, Work Release Form - 2 day, Local Pharmacy Hours form. - Follow up: Emergency Department; When: As needed; Reason: Worsening of conditions. [facility]: [facility]; When: Call to arrange an appointment; Reason: Recheck today's complaints, Continuance of care, To establish care. - Problem is new. - Symptoms have improved. - Notes: YOUR LABWORK AND ULTRASOUND DID NOT SHOW ANY ABNORMALITIES TODAY. PLEASE FOLLOW UP WITH PRIMARY CARE IN THE NEXT FEW DAYS TO RECHECK YOUR SYMPTOMS. ANY WORSENING SYMPTOMS, PLEASE RETURN TO THE ER. Historical: - Allergies: no known allergies; - Home Meds: 1. none - PMHx: none; - PSHx: none; - Social history: Smoking status: Patient uses tobacco products, heavy tobacco smoker. No barriers to communication noted, Speaks appropriately for age. - Family history: Not pertinent. - : The pt / caregiver states he / she is not on anticoagulants. Home medication list is obtained from the patient. - Exposure Risk Screening:: None identified. 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 (152.40 cm) (R); Pain 0/10; 11:33 BP 117 / 67; Pulse 80; Resp 18; Temp 98.4; Pulse Ox 98% ; jam1 09:03 Body Mass Index 23.83 (55.34 kg, 152.40 cm) ml6 MDM: 09:21 NS 0.9% 1000 ml IV at bolus once ordered. dt4 09:21 Ondansetron 4 mg IVP once ordered. dt4 09:21 ketorolac 30 mg IVP once ordered. dt4 09:21 IV Saline Lock ordered. dt4 09:21 Undress patient appropriately for examination ordered. dt4 09:22 Amylase Ordered. EDMS 09:22 Basic Metabolic Profile Ordered. EDMS 09:22 CBC with Diff Ordered. EDMS 09:22 Lipase Ordered. EDMS 09:22 Liver Profile Ordered. EDMS 09:22 Urinalysis Ordered. EDMS 09:22 CRP Ordered. EDMS 09:22 Urine Culture Ordered. EDMS 09:22 US Abd Limited Ordered. EDMS 09:22 NOTHING BY MOUTH+DIET ordered. EDMS 09:44 Consult PFS/PSA/Director Of Video Analytics ordered. dt4 10:21 Financial registration complete. lg 10:52 [facility] Payment Agreement was scanned into Genm[employer] and attached to record. lg 11:15 Consult PFS/PSA/Director Of Video Analytics complete. dls 12:04 T-Sheet-- Draft Copy was scanned into Genmab and attached to record. [facility] 12:23 Radiology Report was scanned into Genmab and attached to record. gb Administered Medications: 09:45 Drug: NS 0.9% 1000 ml [sodium chloride 0.9 % intravenous solution] Route: IV; Rate: ttb bolus; Site: left antecubital; 09:50 Drug: ketorolac 30 mg [ketorolac 30 mg/mL (1 mL) injection solution (1 mL)] Route: IVP; ttb Site: left antecubital; 09:52 Drug: Ondansetron 4 mg [ondansetron HCl 2 mg/mL intravenous solution (2 mL)] Route: ttb IVP; Site: left antecubital; Signatures: Dispatcher [employer] EDMS Sahara Murray RN RN dls Shreya Sevilla, Reg Reg gb Parrish Padgett, Reg Reg lg Leif Arana RN RN ml6 Samantha Mary RN RN ttb Glenna Rosenberg PA-C PACory dt4 Margaret Miller [facility] The chart was reviewed and I authenticate all verbal orders and agree with the evaluation and treatment provided.Attachments: 10:52 [facility] Payment Agreement lg 12:04 T-Sheet-- Draft Copy se Chart Complete MTDD
--- NOTE | 2016-05-26 12:49 | EDDOCDS ---
Nurse's Notes [facility] Name: Sandie Ledbetter Age: 20 yrs Sex: Female : 1995 Arrival Date: 05/24/2016 Time: 08:54 Bed I2 / M2 Private MD: Diagnosis: Nausea with vomiting, unspecified;Diarrhea, unspecified;Upper abdominal pain, unspecified-ruq Presentation: 05/24 09:02 Presenting complaint: Patient states: states n/v/d x 2 days, denies abd pain. Adult ml6 Sepsis Screening: The patient does not have new or worsening altered mentation. Patient's respiratory rate is less than 22. Systolic blood pressure is greater than 100. Patient has a qSOFA score of 0- Negative Sepsis Screen. Suicide/Homicide risk assessment- the patient denies having any suicidal and/or homicidal ideations and does not present with any other emotional, behavioral or mental health complaints. Status: Patient is not a services mgr or dependent. Transition of care: patient was not received from another setting of care. 09:02 Acuity: FANY Level 4 ml6 09:02 Method Of Arrival: Walkin/Carried/Asstd ml6 09:25 Acuity level changed due to complexity of care. ml6 09:25 Acuity: FANY Level 3 ml6 Triage Assessment: 09:04 General: Appears in no apparent distress, Behavior is appropriate for age, cooperative. ml6 Pain: Denies pain. HIV screening NA for this visit Offered previously. GI: Abdomen is flat, non- distended Bowel sounds present X 4 quads. Abd is soft and non tender X 4 quads. Reports diarrhea, nausea, vomiting. BOLT CUTTER: 09:03 LMP 05/24/2016 ml6 Historical: - Allergies: no known allergies; - Home Meds: 1. none - PMHx: none; - PSHx: none; - Social history: Smoking status: Patient uses tobacco products, heavy tobacco smoker. No barriers to communication noted, Speaks appropriately for age. - Family history: Not pertinent. - : The pt / caregiver states he / she is not on anticoagulants. Home medication list is obtained from the patient. - Exposure Risk Screening:: None identified. Screenin:41 Screening information is obtained from the patient. Fall risk: No risks identified. ttb Assistance ADL's: requires no assistance with activities of daily living. Abuse/DV Screen: The patient / caregiver reports he/she is: not in a situation that causes fear, pain or injury. Nutritional screening: No deficits noted. Advance Directives: Currently, there is no health care proxy. home support is adequate. Assessment: 09:41 General: Appears in no apparent distress, uncomfortable, well nourished, well groomed, ttb Behavior is appropriate for age, cooperative, pleasant. Pain: Location: lower abd/pelvis. Neurological: Level of Consciousness is awake, alert, Oriented to person, place, time, Speech is normal, Facial symmetry appears normal. Cardiovascular: Heart tones S1 S2 present Chest pain is denied. Respiratory: No deficits noted. Airway is patent Respiratory effort is even, unlabored, Breath sounds are clear bilaterally. Denies cough, shortness of breath. GI: Bowel sounds present X 4 quads. Reports diarrhea, lower abdominal pain, nausea, vomiting, Denies constipation, intolerance of fluids. : Denies burning with urination, urinary frequency, urgency. Derm: Skin is normal. Injury Description: No known injury. 09:50 General: pt given meds as ordered. Pt emotional regarding home situations/social ttb situations. PA aware and PSA consult ordered. Pt interested in speaking to someone. . 11:21 General: Edis Wood PSA in to speak with pt.. ann Social Work Consult: 11:31 Social Work Note: Pt presented c/o general illness. 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 Pt also reports she has no insurance at this time. Pt denies SI/HI, is accompanied by her mother. Pt provided with referrals, emergency #'s. No further intervention required at this time. Vital Signs: 09:03 BP 116 / 75; Pulse 92; Resp 16; Temp 98.1(O); Pulse Ox 99% on R/A; Weight 55.34 kg (R); ml6 Height 5 ft. (152.40 cm) (R); Pain 0/10; 11:33 BP 117 / 67; Pulse 80; Resp 18; Temp 98.4; Pulse Ox 98% ; jam1 09:03 Body Mass Index 23.83 (55.34 kg, 152.40 cm) ml6 Vitals: 09:03 Log In Time: May 24, 2016 at 08:54. ml6 ED Course: 08:57 Patient visited by Don Urias, Reg. mpb 08:57 Patient moved to Waiting mpb 09:03 Triage Initiated ml6 09:04 Sahara Murray RN is Primary Nurse. ml6 09:04 Patient moved to I2 / M2 ml6 09:13 Glenna Rosenberg PA-C is PHCP. dt4 09:13 Mitul Doyle MD is Attending Physician. dt4 09:13 Patient visited by Glenna Rosenberg PA-C. dt4 09:41 The patient / caregiver is instructed regarding the plan of care and ED course. Patient ttb has correct armband on for positive identification. Placed in gown. Call light in reach. Side rails up X 1. 09:41 Inserted peripheral IV: 20gauge IV in left antecubital area and blood collected. ttb Patient tolerated the procedure well. Labs drawn. (by ED staff). Urine collected. Clean catch specimen. 09:46 Urinalysis Sent. jam1 09:46 Urine Culture Sent. jam1 09:52 Patient visited by Samantha Mary RN. ttb 09:57 Patient visited by Samantha Mary RN. ttb 10:04 Patient moved to Ultrasound br3 10:08 Patient has correct armband on for positive identification. Call light in reach. Side jam1 rails up X 1. Door closed. 10:18 Patient moved to I2 / M2 br3 10:40 US Abd Limited Returned. EDMS 10:52 [facility] [place] Payment Agreement was scanned into prollie and attached to record. lg 11:01 Patient visited by Sahara Murray RN. dls 11:32 [facility] is Referral Physician. dt4 11:39 Discontinued IV lock intact, bleeding controlled, pressure dressing applied, No dls redness/swelling at site. 11:40 No procedures done that require assistance. dls 12:04 T-Sheet-- Draft Copy was scanned into prollie and attached to record. seh 12:23 Radiology Report was scanned into prollie and attached to record. gb Administered Medications: 09:45 Drug: NS 0.9% 1000 ml [sodium chloride 0.9 % intravenous solution] Route: IV; Rate: ttb bolus; Site: left antecubital; 09:50 Drug: ketorolac 30 mg [ketorolac 30 mg/mL (1 mL) injection solution (1 mL)] Route: IVP; ttb Site: left antecubital; 09:52 Drug: Ondansetron 4 mg [ondansetron HCl 2 mg/mL intravenous solution (2 mL)] Route: ttb IVP; Site: left antecubital; Order Results: Lab Order: Amylase; SPEC'M 05/24/16 09:34 Test: AMYLASE; Value: 36; Range: 25-115; Units: U/L; Status: F Lab Order: Basic Metabolic Profile; SPEC'M 05/24/16 09:34 Test: GLUCOSE, FASTING; Value: 87; Range: 70-105; Units: MG/DL; Status: F Test: BLOOD UREA NITROGEN; Value: 12; Range: 7-18; Units: MG/DL; Status: F Test: CREATININE FOR GFR; Value: 0.85; Range: 0.55-1.02; Units: MG/DL; Status: F Test: GLOMERULAR FILTRATION RATE; Value: > 60.0; Range: >60; Status: F Test: SODIUM LEVEL; Value: 143; Range: 136-145; Units: MEQ/L; Status: F Test: POTASSIUM SERUM; Value: 3.6; Range: 3.5-5.1; Units: MEQ/L; Status: F Test: CHLORIDE LEVEL; Value: 104; Range: 98-107; Units: MEQ/L; Status: F Test: CARBON DIOXIDE LEVEL; Value: 28; Range: 21-32; Units: MEQ/L; Status: F Test: ANION GAP; Value: 11; Range: 8-16; Units: MEQ/L; Status: F Test: CALCIUM LEVEL; Value: 9.3; Range: 8.5-10.1; Units: MG/DL; Status: F Test Note: ; Units are mL/min/1.73 m2 Chronic Kidney Disease Staging per NKF: Stage I & II GFR >=60 Normal to Mildly Decreased Stage III GFR 30-59 Moderately Decreased Stage IV GFR 15-29 Severely Decreased Stage V GFR <15 Very Little GFR Left ESRD GFR <15 on SALES AND SERVICE REPRESENTATIVE Lab Order: CBC with Diff; SPEC'M 05/24/16 09:34 Test: WHITE BLOOD COUNT; Value: 6.2; Range: 4.0-10.0; Units: K/mm3; Status: F Test: RED BLOOD COUNT; Value: 4.78; Range: 4.00-5.40; Units: M/mm3; Status: F Test: HEMOGLOBIN; Value: 14.3; Range: 12.0-16.0; Units: g/dl; Status: F Test: HEMATOCRIT; Value: 41.2; Range: 36.0-47.0; Units: %; Status: F Test: MEAN CORPUSCULAR VOLUME; Value: 86.2; Range: 80.0-96.0; Units: fl; Status: F Test: MEAN CORPUSCULAR HEMOGLOBIN; Value: 29.9; Range: 27.0-33.0; Units: pg; Status: F Test: MEAN CORPUSCULAR HGB CONC; Value: 34.6; Range: 32.0-36.5; Units: g/dl; Status: F Test: RED CELL DISTRIBUTION WIDTH; Value: 12.7; Range: 11.5-14.5; Units: %; Status: F Test: PLATELET COUNT, AUTOMATED; Value: 255; Range: 150-450; Units: k/mm3; Status: F Test: NEUTROPHILS %; Value: 45.7; Range: 36.0-66.0; Units: %; Status: F Test: LYMPH %; Value: 40.5; Range: 24.0-44.0; Units: %; Status: F Test: MONO %; Value: 5.3; Range: 0.0-5.0; Abnormal: Above high normal; Units: %; Status: F Test: EOS %; Value: 4.1; Range: 0.0-3.0; Abnormal: Above high normal; Units: %; Status: F Test: BASO %; Value: 0.5; Range: 0.0-1.0; Units: %; Status: F Test: LARGE UNSTAINED CELL %; Value: 3.9; Range: 0.0-4.0; Units: %; Status: F Test: NEUTROPHILS #; Value: 2.8; Range: 1.8-7.7; Units: K/mm3; Status: F Test: LYMPH #; Value: 2.5; Range: 1.5-6.5; Units: K/mm3; Status: F Test: MONO #; Value: 0.3; Range: 0.0-0.8; Units: K/mm3; Status: F Test: EOS #; Value: 0.2; Range: 0.0-0.50; Units: K/mm3; Status: F Test: BASO #; Value: 0.0; Range: 0.0-0.2; Units: K/mm3; Status: F Test: LARGE UNSTAINED CELL #; Value: 0.2; Range: 0.0-0.4; Units: K/mm3; Status: F Lab Order: Lipase; SPEC'M 05/24/16 09:34 Test: LIPASE; Value: 125; Range: 73-393; Units: U/L; Status: F Lab Order: Liver Profile; [facility] 05/24/16 09:34 Test: AST/SGOT; Value: 16; Range: 15-37; Units: U/L; Status: F Test: ALT/SGPT; Value: 25; Range: 12-78; Units: U/L; Status: F Test: ALKALINE PHOSPHATASE; Value: 97; Range: 45-117; Units: U/L; Status: F Test: BILIRUBIN,TOTAL; Value: 0.4; Range: 0.2-1.0; Units: MG/DL; Status: F Test: BILIRUBIN,DIRECT; Value: 0.1; Range: 0.0-0.2; Units: MG/DL; Status: F Test: TOTAL PROTEIN; Value: 7.7; Range: 6.4-8.2; Units: GM/DL; Status: F Test: ALBUMIN; Value: 4.3; Range: 3.2-5.2; Units: GM/DL; Status: F Test: ALBUMIN/GLOBULIN RATIO; Value: 1.26; Range: 1.00-1.93; Status: F Lab Order: Urinalysis; [facility]05/24/16 09:34 Test: APPEARANCE, URINE; Value: CLOUDY; Range: CLEAR; Abnormal: Above high normal; Status: F Test: COLOR, URINE; Value: RANDELL; Range: YELLOW; Status: F Test: PH,URINE; Value: 6.0; Range: 5.0-9.0; Units: UNITS; Status: F Test: SPECIFIC GRAVITY URINE AUTO; Value: 1.027; Range: 1.002-1.035; Status: F Test: PROTEIN, URINE AUTO; Value: 2+; Range: NEGATIVE; Abnormal: Above high normal; Units: mg/dL; Status: F Test: GLUCOSE, URINE (UA) AUTO; Value: NEGATIVE; Range: NEGATIVE; Units: mg/dL; Status: F Test: KETONE, URINE AUTO; Value: NEGATIVE; Range: NEGATIVE; Units: mg/dL; Status: F Test: UROBILINOGEN, URINE AUTO; Value: 0.2; Range: 0.0-2.0; Units: mg/dL; Status: F Test: BILIRUBIN, URINE AUTO; Value: NEGATIVE; Range: NEGATIVE; Status: F Test: NITRITE, URINE AUTO; Value: NEGATIVE; Range: NEGATIVE; Status: F Test: LEUKOCYTE ESTERASE, URINE AUTO; Value: NEGATIVE; Range: NEGATIVE; Status: F Test: BLOOD, URINE BLOOD; Value: 3+; Range: NEGATIVE; Abnormal: Above high normal; Status: F Test: WBC, URINE AUTO; Value: 9; Range: 0-3; Abnormal: Above high normal; Units: /HPF; Status: F Test: RBC, URINE AUTO; Value: 141; Range: 0-3; Abnormal: Above high normal; Units: /HPF; Status: F Test: BACTERIA, URINE AUTO; Value: 1+; Range: NEGATIVE; Abnormal: Above high normal; Status: F Test: SQUAMOUS EPITHELIAL CELL UR AU; Value: 6; Range: 0-6; Units: /HPF; Status: F Test: MUCUS, URINE; Value: LARGE; Range: NEGATIVE; Status: F Test: HYALINE CAST, URINE AUTO; Value: 0; Range: 0-1; Units: /LPF; Status: F Lab Order: Urine Culture; SPEC'M 05/24/16 09:34 Test: URINE CULTURE; Value: URINE CULTURE RESULT NO GROWTH; Status: F Lab Order: CRP; SPEC'M 05/24/16 09:34 Test: C REACTIVE PROTEIN QUANTITATIV; Value: 1.13; Range: 0.00-0.30; Abnormal: Above high normal; Units: MG/DL; Status: F Radiology Order: US Abd Limited Test: US Abd Limited REASON FOR EXAMINATION: Biliary Colic; Right upper quadrant sonography:; ; History: Biliary colic.; ; Findings: Scanning through the right upper quadrant of the abdomen demonstrates; a normal sized thin-walled gallbladder without evidence of stone or polyp.; Common bile duct is normal measuring 0.3 cm in greatest diameter. No focal liver; lesion is seen. Pancreas is unremarkable. There is no evidence of ascites or; right renal abnormality. The right kidney measures 9.7 x 5.0 x 3.9 cm.; ; Impression:; ; Negative right upper quadrant sonography.; ; ; Signed by; Stephen Jang MD 05/24/2016 10:26 A; Outcome: 09:41 Ultrasound Study completed. ttb 11:32 Discharge ordered by Provider. dt4 11:39 Discharge Assessment: Patient awake, alert and oriented x 3. No cognitive and/or dls functional deficits noted. Patient verbalized understanding of disposition instructions. patient administered narcotics - no. The following High Risk Discharge criteria are identified: None. Discharged to home ambulatory, with family. Condition: stable. Discharge instructions given to patient, Instructed on discharge instructions, follow up and referral plans. Demonstrated understanding of instructions, Pt was receptive of discharge instructions/ teaching. Property sent home with patient. 11:40 Patient left the ED. dls 11:44 Patient left the ED. dls Signatures: Dispatcher [employer] EDMS Sahara Murray, RN RN dls Dolly Rondon, PARTY SUPPLY SPECIALIST PARTY SUPPLY SPECIALIST jam1 Edis Wood, PSA PSA ac Shreya Sevilla, Reg Reg gb Parrish Padgett, Reg Reg lg Leif Arana RN RN ml6 Toya Washington br3 Samantha Mary RN RN ttb Glenna Rosenberg, PACory PACory dt4 Don Urias, Reg Reg mpb Margaret Miller Chart Complete MTDD
== END 2016-05-24 11:44 | disposition home or self-care (01) ==
LOC: M ED 08:54
DX: R10.11 Right upper quadrant pain (principal); R11.2 Nausea with vomiting, unspecified; R19.7 Diarrhea, unspecified; F17.210 Nicotine dependence, cigarettes, uncomplicated
CPT/HCPCS: 36415; 76705; 80048; 80076; 81001; 82150; 83690; 85025; 86140; 87086; 96374; 96375; 99284; J1885; J2405

== ENCOUNTER → 2017-10-04 | Outpatient (CLI) | payer OTHER ==
[2017-10-04 09:38] LABS: BASO % 0.5 % (0.0-1.0); EOS # 0.1 10^3/uL (0.0-0.50); EOS % 1.6 % (0.0-3.0); HEMATOCRIT 39.9 % (36.0-47.0); HEMOGLOBIN 13.6 g/dl (12.0-15.5); IMMATURE GRANULOCYTE % 0.2 % (0-3.0); LYMPH # 1.6 10^3/uL (1.5-6.5); LYMPH % 28.6 % (24.0-44.0); MEAN CORPUSCULAR HEMOGLOBIN 30.6 pg (27.0-33.0); MEAN CORPUSCULAR HGB CONC 34.1 g/dl (32.0-36.5); MEAN CORPUSCULAR VOLUME 89.9 fl (80.0-96.0); MONO # 0.4 10^3/uL (0.0-0.8); MONO % 7.5 % (0.0-5.0); NEUTROPHILS # 3.4 10^3/uL (1.8-7.7); NEUTROPHILS % 61.6 % (36.0-66.0); PLATELET COUNT, AUTOMATED 228 10^3/uL (150-450); RED BLOOD COUNT 4.44 10^6/uL (4.00-5.40); RED CELL DISTRIBUTION WIDTH 12.6 % (11.5-14.5); WHITE BLOOD COUNT 5.5 10^3/uL (4.0-10.0)
[2017-10-04 10:09] LABS: APPEARANCE, URINE HAZY (CLEAR); BACTERIA, URINE AUTO 1+ (NEGATIVE); BILIRUBIN, URINE AUTO NEGATIVE (NEGATIVE); BLOOD, URINE BLOOD NEGATIVE (NEGATIVE); COLOR, URINE YELLOW (YELLOW); GLUCOSE, URINE (UA) AUTO NEGATIVE (NEGATIVE); KETONE, URINE AUTO NEGATIVE (NEGATIVE); LEUKOCYTE ESTERASE, URINE AUTO NEGATIVE (NEGATIVE); MUCUS, URINE SMALL (NEGATIVE); NITRITE, URINE AUTO NEGATIVE (NEGATIVE); PROTEIN, URINE AUTO NEGATIVE (NEGATIVE); RBC, URINE AUTO 8 /HPF (0-3); SPECIFIC GRAVITY URINE AUTO 1.024 (1.002-1.035); SQUAMOUS EPITHELIAL CELL UR AU 6 /HPF (0-6); UROBILINOGEN, URINE AUTO 0.2 mg/dL (0.0-2.0); WBC, URINE AUTO 1 /HPF (0-3)
[2017-10-04 10:19] LABS: ALBUMIN/GLOBULIN RATIO 1.21 (1.00-1.93); ALKALINE PHOSPHATASE 95 U/L (45-117); ALT/SGPT 20 U/L (12-78); ANION GAP 4 MEQ/L (8-16); AST/SGOT 12 U/L (7-37); BILIRUBIN,TOTAL 0.3 MG/DL (0.2-1.0); BLOOD UREA NITROGEN 12 MG/DL (7-18); CALCIUM LEVEL 9.1 MG/DL (8.5-10.1); CARBON DIOXIDE LEVEL 32 MEQ/L (21-32); CHLORIDE LEVEL 106 MEQ/L (98-107); CREATININE FOR GFR 0.77 MG/DL (0.55-1.30); GLOMERULAR FILTRATION RATE > 60.0 (>60); GLUCOSE, FASTING 77 MG/DL (70-100); POTASSIUM SERUM 4.4 MEQ/L (3.5-5.1); SODIUM LEVEL 142 MEQ/L (136-145); TOTAL PROTEIN 7.3 GM/DL (6.4-8.2)
[2017-10-04 10:27] LABS: HEPATITIS B SURFACE ANTIBODY NEGATIVE (POSITIVE)
[2017-10-04 10:37] LABS: HEPATITIS B SURFACE ANTIGEN NEGATIVE (NEGATIVE)
[2017-10-04 11:05] LABS: HEPATITIS C VIRUS ABY INDEX < 0.0 INDEX (<0.8)
[2017-10-04 11:07] LABS: HEPATITIS A ANTIBODY IGM NEGATIVE (NEGATIVE)
[2017-10-06 08:06] LABS: ALPHA 2-MACROGLOBULIN 217 mg/dL (110-276); ALT 16 IU/L (0-40); APOLIPOPROTEIN A-1 158 mg/dL (116-209); FIBROSIS SCORE 0.03 (0.00-0.21); GGT 11 IU/L (0-60); HAPTOGLOBIN 142 mg/dL (34-200); HEPATITIS A IgG TOTAL Negative (Negative); NECROINFLAM SCORE 0.04 (0.00-0.17); NECROINFLAMM GRADE A0-No activity (.); TOTAL BILIRUBIN 0.2 mg/dL (0.0-1.2)
[2017-10-09 00:08] LABS: HEPATITIS C QUANTITATION HCV Not Detected IU/mL (.)
== END ==
LOC: M LAB 08:41
DX: B17.0 Acute delta-(super) infection of hepatitis B carrier (principal); Z79.891 Long term (current) use of opiate analgesic
CPT/HCPCS: 84460

== ENCOUNTER → 2018-05-04 | Outpatient (CLI) | payer OTHER, SELFPAY ==
[2018-05-04 14:19] LABS: HEMATOCRIT 40.8 % (36.0-47.0); HEMOGLOBIN 13.8 g/dl (12.0-15.5); MEAN CORPUSCULAR HEMOGLOBIN 29.7 pg (27.0-33.0); MEAN CORPUSCULAR HGB CONC 33.8 g/dl (32.0-36.5); MEAN CORPUSCULAR VOLUME 87.9 fl (80.0-96.0); PLATELET COUNT, AUTOMATED 317 10^3/uL (150-450); RED BLOOD COUNT 4.64 10^6/uL (4.00-5.40); WHITE BLOOD COUNT 6.1 10^3/uL (4.0-10.0)
[2018-05-04 14:48] LABS: ALBUMIN 3.7 GM/DL (3.2-5.2); ALT/SGPT 22 U/L (12-78); BILIRUBIN,TOTAL 0.3 MG/DL (0.2-1.0); BLOOD UREA NITROGEN 10 MG/DL (7-18); CALCIUM LEVEL 8.7 MG/DL (8.5-10.1); CARBON DIOXIDE LEVEL 26 MEQ/L (21-32); CHLORIDE LEVEL 107 MEQ/L (98-107); CREATININE FOR GFR 0.68 MG/DL (0.55-1.30); GLOMERULAR FILTRATION RATE > 60.0 (>60); GLUCOSE, FASTING 86 MG/DL (70-100); POTASSIUM SERUM 4.5 MEQ/L (3.5-5.1); SODIUM LEVEL 140 MEQ/L (136-145); TOTAL PROTEIN 7.2 GM/DL (6.4-8.2)
== END ==
LOC: M LAB 12:57
PROVIDERS: ATTEND Nurse Practitioner Family
DX: F11.20 Opioid dependence, uncomplicated (principal)

== ENCOUNTER → 2018-09-07 | Outpatient (REF) | payer OTHER, MEDICAID | LOC: M LAB REF 18:45 | PROVIDERS: ATTEND Family Medicine Addiction Medicine | DX: J02.8 Acute pharyngitis due to other specified organisms (principal) ==

== ENCOUNTER 2019-07-01 14:09 | Emergency (ER) | payer MEDICAID, OTHER ==
[~2019-07-01] VITALS: Ht 152.4 cm; Wt 65.8 kg
[2019-07-01 15:31] LABS: HEMATOCRIT 33.3 % (36.0-47.0); MEAN CORPUSCULAR HEMOGLOBIN 29.1 pg (27.0-33.0); MEAN CORPUSCULAR VOLUME 88.1 fl (80.0-96.0); PLATELET COUNT, AUTOMATED 209 10^3/uL (150-450); RED BLOOD COUNT 3.78 10^6/uL (4.00-5.40); WHITE BLOOD COUNT 6.7 10^3/uL (4.0-10.0)
[2019-07-01 15:58] LABS: AMPHETAMINES LEVEL URINE POSITIVE (NEGATIVE); BARBITURATES URINE NEGATIVE (NEGATIVE); BENZODIAZEPINES URINE NEGATIVE (NEGATIVE); CANNABINOIDS URINE POSITIVE (NEGATIVE); COCAINE METABOLITE URINE NEGATIVE (NEGATIVE); METHADONE URINE NEGATIVE (NEGATIVE); OPIATES URINE POSITIVE (NEGATIVE); PHENCYCLIDINE URINE NEGATIVE (NEGATIVE)
[2019-07-01 15:59] LABS: HCG, SERUM QUALITATIVE NEGATIVE (NEGATIVE)
[2019-07-01 16:12] LABS: ACETAMINOPHEN LEVEL < 2.0 UG/ML (10.0-30.0); ALBUMIN 3.1 GM/DL (3.2-5.2); ALT/SGPT 27 U/L (12-78); BILIRUBIN,DIRECT < 0.1 MG/DL (0.0-0.2); BILIRUBIN,TOTAL 0.2 MG/DL (0.2-1.0); BLOOD UREA NITROGEN 13 MG/DL (7-18); CALCIUM LEVEL 8.1 MG/DL (8.5-10.1); CARBON DIOXIDE LEVEL 29 MEQ/L (21-32); CHLORIDE LEVEL 109 MEQ/L (98-107); CREATININE FOR GFR 0.85 MG/DL (0.55-1.30); ETHYL ALCOHOL (ETHANOL) < 0.003 % (0.000-0.010); GLOMERULAR FILTRATION RATE > 60.0 (>60); GLUCOSE, FASTING 132 MG/DL (70-100); POTASSIUM SERUM 3.9 MEQ/L (3.5-5.1); SALICYLATE LEVEL < 1.7 MG/DL (5.0-30.0); SODIUM LEVEL 143 MEQ/L (136-145); TOTAL PROTEIN 6.4 GM/DL (6.4-8.2)
--- NOTE | 2019-07-01 17:19 | ED PDOC ---
Provider Note Consult Sandie Lund MRN: N/A Date of : N/A Date of Service: 07/01/2019 Chief Complaint "I used a lot of heroin." History of Present Illness The patient is a 23-year-old woman presented to [facility] after using heroin and relapsing. She reported that she had suicidal ideation; however, when she met with the patient she reported that she had stated in a way to "get help" but in fact did not have suicidal ideation. Reporting that she felt that it would get her "help faster." The patient was met with where her parents were present. She reports having no significant psychiatric history, but has relapsed on a significant amount of heroin. Reports being on Suboxone in the past, but is currently not on any, is attempting to get into rehab. The patient reports that she is amenable to staying with her parents, is currently referred to rehab. Discussed that she be interested in trying a small amount of Suboxone to stay clean while she is waiting for inpatient rehab. She reports that she otherwise is open to establishing with addiction on Wednesday as well. Her parents asked collateral information, report no history of suicide attempts and no concerns about suicidal behavior, although they are concerned about her drug use. Review Of Systems Depression: The patient denies any episodes of unprovoked depressed mood associated with neurovegetative symptoms lasting longer than 2 weeks with symptoms present nearly everyday. Anxiety: The patient denies any excessive worry associated with physical symptoms. They deny any experience of discreet panic in the past. Armida: The patient denies any episodes of euphoria/dysphoria associated with decreased need for sleep, hedonism, talkatively or impulsivity lasting longer than 5 days. Psychotic: The patient denies any experiences of auditory or visual hallucinations. They deny any episodes of paranoia or delusional thinking in the past Trauma: The patient denies any traumatic events associated with nightmares or intrusive thoughts. Borderline: The patient screens negative for borderline personality at this junction. Past Psychiatric History The patient reports no history of psychiatric admissions, medication trials or current follow up. Denies any suicide attempts Family Psychiatric History The patient denies/is unaware any history of mental health history including addictions and suicide. Social History Patient currently is homeless. 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 She reports she has trouble meeting her needs. Reports that her parents are supportive. Denies any history of trauma or abuse. Medical History Secondary issues related to drug use. Allergies See below Mental Status Examination General: Well dressed with good hygiene Speech: Spontaneous and fluid Thought processes: Linear and logical MSK: Smooth and coordinated gait, no signs of tremors or involuntary orofacial movements Thought content: Future orientated Abstract reasoning, and computation: Intact Description of associations: Intact Description of abnormal or psychotic thoughts: Denies any suicidal or homicidal ideation. Denies any auditory or visual hallucinations. Does not appear to be responding to internal stimuli. Does not appear to be endorsing any bizarre or paranoid ideation. Judgment: fair Insight: fair Orientation: Alert and orientated 3 Cognition: Grossly normal Recent and remote memory: Intact Attention span and concentration: Intact Fund of knowledge: Adequate Mood: "okay" Affect: Euthymic with a full range Diagnoses Opioid use disorder, severe. Assessment and Plan The patient is a 23-year-old woman presents wanting help for drug use. Initially, she had stated that she was suicidal and had presented stating that she was not in fact suicidal, but thought that it will get her "help faster." The patient is amenable to trying a small dose of buprenorphine. Additionally planned with parents that she will live with parents between now and when she goes to rehab. Information given to coordinator to get patient to rehab quickly, several strips of 4 mg Suboxone given, discussed with patient about sober sobriety plan, use of NA and further help. Collateral information supports the patient is not suicidal at this time, although needs drug treatment very quickly. The patient does not meet involuntary criteria for a psychiatric admission as she denied suicidal or homicidal ideation, has normal mental status exam, fair insight into the situation and collateral information supports that she has not engaged in any suicidal behavior. Her drug use is her most significant dynamic risk factor; however, based solely on this I cannot attest that she is at eminent risk of self harm from a psychiatric disorder and that her drug use is in need of being treated. She declines a voluntary admission and will be discharged in good hollie. She will stay with her parents with a small dose of Suboxone. She is given information for walk-in clinic for addiction where she can be treated in the interim while she waits for rehab. She agrees to this plan and her parents appear amenable to helping. Disposition Discharged with parents. Time Spent 30 minutes Wednesday KANCHAN HERRERA DO Jul 01, 2019 17:18
[2019-07-01 17:45] LABS: CHLAMYDIA DNA AMPLIFICATION NEGATIVE (NEGATIVE); GC DNA AMPLIFICATION POSITIVE (NEGATIVE)
[2019-07-01] MEDS ORDERED: LIDOCAINE 1% SDV 5 ML VIAL DILUENT ONE (18:00)
[2019-07-01] MEDS ORDERED: cefTRIAXone SOD 250 MG VIAL (J0696) IM ONE (18:00)
[2019-07-01] MEDS ORDERED: AZITHROMYCIN INJ 500 MG, VIAL MATE ADAPTER 1 EACH in D5W 250 ML IV ONE (18:00)
[2019-07-01] MEDS ORDERED: metroNIDAZOLE (FLAGYL) 500 MG TAB PO ONE (18:15)
[2019-07-01] MEDS ORDERED: FLAG500T PO (19:30)
[2019-07-01] MEDS ORDERED: AZITHROMYCIN 250 MG TAB PO ONE (19:30)
[2019-07-01] MEDS ORDERED: SUBO4MIS SL (19:32)
[2019-07-01 19:46] VITALS: BP 110/59
[2019-07-03 13:15] LABS: HEPATITIS B SURFACE ANTIBODY POSITIVE (POSITIVE); HEPATITIS B SURFACE ANTIGEN NEGATIVE (NEGATIVE); HEPATITIS C VIRUS ABY INDEX > 11.0 INDEX (<0.8); HIV 1&2 SCREEN CENTAUR NEGATIVE (NEGATIVE)
== END 2019-07-01 19:49 | disposition home or self-care (01) ==
LOC: M ED 14:09
DX: F19.10 Other psychoactive substance abuse, uncomplicated (principal); B96.89 Other specified bacterial agents as the cause of diseases classified elsewhere; A54.9 Gonococcal infection, unspecified; Z59.0 Homelessness
CPT/HCPCS: 80048; 80076; 80307; 84443; 84703; 85027; 86706; 86780; 86803; 87210; 87340; 87389; 87521; 87661; 96372; 99284; G0480; J0696

== ENCOUNTER 2020-04-13 00:35 | Emergency (ER) | payer OTHER ==
[~2020-04-13] VITALS: Ht 154.9 cm; Wt 68.1 kg
[~2020-04-13 00:35] MED LIST: FLAG500T PO; SUBO4MIS SL
[2020-04-13 02:04] LABS: HCG, SERUM QUALITATIVE NEGATIVE (NEGATIVE)
[2020-04-13 03:00] VITALS: BP 116/60
[2020-04-13 03:14] LABS: CHLAMYDIA DNA AMPLIFICATION NEGATIVE (NEGATIVE); GC DNA AMPLIFICATION NEGATIVE (NEGATIVE)
== END 2020-04-13 03:29 | disposition left against medical advice (07) ==
LOC: M ED 00:35
DX: N93.9 Abnormal uterine and vaginal bleeding, unspecified (principal); R10.2 Pelvic and perineal pain; F19.10 Other psychoactive substance abuse, uncomplicated; Z53.9 Procedure and treatment not carried out, unspecified reason; B19.20 Unspecified viral hepatitis C without hepatic coma

== ENCOUNTER 2020-04-16 10:17 | Emergency (ER) | payer OTHER ==
[~2020-04-16] VITALS: Ht 160 cm; Wt 65.9 kg
[2020-04-16] MEDS ORDERED: PROMETHAZINE INJ 25 MG/ML VIAL (J2550) IV ONE (11:00)
[2020-04-16] MEDS ORDERED: NS 1,000 ML IV ONE (11:00)
[2020-04-16 12:13] LABS: BASO % 0.1 % (0.0-1.0); EOS # 0.1 10^3/uL (0.0-0.5); EOS % 0.9 % (0.0-3.0); HEMATOCRIT 40.7 % (36.0-47.0); HEMOGLOBIN 13.3 g/dl (12.0-15.5); LYMPH % 9.1 % (24.0-44.0); MEAN CORPUSCULAR HEMOGLOBIN 28.1 pg (27.0-33.0); MEAN CORPUSCULAR HGB CONC 32.7 g/dl (32.0-36.5); MONO # 0.9 10^3/uL (0.0-0.8); MONO % 8.1 % (0.0-5.0); NEUTROPHILS # 8.5 10^3/uL (1.5-8.5); NEUTROPHILS % 81.5 % (36.0-66.0); PLATELET COUNT, AUTOMATED 275 10^3/uL (150-450); RED BLOOD COUNT 4.73 10^6/uL (4.00-5.40); WHITE BLOOD COUNT 10.5 10^3/uL (4.0-10.0)
[2020-04-16 12:36] LABS: ALBUMIN 3.8 GM/DL (3.2-5.2); ALT/SGPT 17 U/L (12-78); AMYLASE 60 U/L (25-115); BILIRUBIN,DIRECT < 0.1 MG/DL (0.0-0.2); BILIRUBIN,TOTAL 0.2 MG/DL (0.2-1.0); BLOOD UREA NITROGEN 19 MG/DL (7-18); CALCIUM LEVEL 9.3 MG/DL (8.5-10.1); CARBON DIOXIDE LEVEL 28 MEQ/L (21-32); CHLORIDE LEVEL 105 MEQ/L (98-107); CREATININE FOR GFR 0.66 MG/DL (0.55-1.30); GLOMERULAR FILTRATION RATE > 60.0 (>60); GLUCOSE, FASTING 93 MG/DL (70-100); LIPASE 496 U/L (73-393); POTASSIUM SERUM 3.8 MEQ/L (3.5-5.1); SODIUM LEVEL 137 MEQ/L (136-145); TOTAL PROTEIN 7.2 GM/DL (6.4-8.2)
[2020-04-16] MEDS ORDERED: ISOVUE-370 76% 100ML VIAL As Ordered ONE (13:00)
--- NOTE | 2020-04-16 14:01 | REP ---
INDICATION: abdominal pain. COMPARISON: None. TECHNIQUE: Helical scanning was acquired and 4 mm axial images are re-formatted. Coronal and sagittal MPR images were generated and reviewed. The contrast enhancement dose is 100 mL of intravenous Isovue 370. FINDINGS: Digital preliminary passenger attendant radiograph is unremarkable. The lung bases are clear on axial CT images. The liver and the spleen are normal in size homogeneous in texture. No abnormality is noted the gallbladder or in the pancreas. Normal adrenal glands are seen. The kidneys enhance symmetrically and are morphologically intact. No intrarenal or ureteral calculus is observed. Urinary bladder is unremarkable. No ovarian or uterine abnormality is seen. The uterus is retroflexed and retroverted. A normal retrocecal appendix is observed. Small and large bowel loops are unremarkable in the abdomen and pelvis. There is no evidence of free air or abnormal fluid collection. No abdominal wall defect is seen. Bone window settings show no bony destructive lesion. IMPRESSION: No acute abdominal or pelvic abnormality. Retroverted retroflexed uterus. <Electronically signed by Juan Pablo Jang > 04/16/20 [id number]
[2020-04-16] MEDS ORDERED: ONDA-83 PO (14:46)
[2020-04-16 14:51] LABS: CHLAMYDIA DNA AMPLIFICATION NEGATIVE (NEGATIVE); GC DNA AMPLIFICATION NEGATIVE (NEGATIVE)
[2020-04-16 15:02] VITALS: BP 133/74
== END 2020-04-16 15:05 | disposition home or self-care (01) ==
LOC: M ED 10:17
DX: T19.2XXA Foreign body in vulva and vagina, initial encounter (principal); R11.10 Vomiting, unspecified; F32.9 Major depressive disorder, single episode, unspecified; F17.200 Nicotine dependence, unspecified, uncomplicated
CPT/HCPCS: 36415; 74177; 80048; 80076; 81001; 82150; 83605; 83690; 85025; 87210; 87491; 87591; 93041; 96361; 96374; 99285; Q9967

== ENCOUNTER → 2020-10-30 | Outpatient (REF) | payer OTHER ==
[~2020-10-30] MED LIST changes: +ONDA-83 PO
[2020-10-30 18:31] LABS: CHLAMYDIA DNA AMPLIFICATION NEGATIVE (NEGATIVE); GC DNA AMPLIFICATION NEGATIVE (NEGATIVE)
== END ==
LOC: M LAB REF 16:17
PROVIDERS: ATTEND Physician Assistant
DX: Z11.59 Encounter for screening for other viral diseases (principal)

== ENCOUNTER → 2022-08-14 | Outpatient (REF) | payer OTHER ==
[2022-08-14 20:13] LABS: GC DNA AMPLIFICATION NEGATIVE (NEGATIVE)
== END ==
LOC: M LAB REF 16:34
PROVIDERS: ATTEND Surgery
DX: A64 Unspecified sexually transmitted disease (principal)

== ENCOUNTER 2022-12-24 10:11 | Emergency (ER) | payer MEDICAID, OTHER ==
[~2022-12-24] VITALS: Ht 154.9 cm; Wt 71.3 kg
[2022-12-24 10:12] VITALS: BP 119/77; TEMP 97.9; O2SAT 98
== END 2022-12-24 13:16 | disposition home or self-care (01) ==
LOC: M ED 10:11
DX: K04.7 Periapical abscess without sinus (principal); K02.9 Dental caries, unspecified; F17.290 Nicotine dependence, other tobacco product, uncomplicated

== ENCOUNTER → 2022-12-28 | Outpatient (REF) | payer OTHER ==
[2022-12-29 12:39] LABS: APPEARANCE, URINE HAZY (CLEAR); BACTERIA, URINE AUTO NEGATIVE (NEGATIVE); BILIRUBIN, URINE AUTO NEGATIVE (NEGATIVE); BLOOD, URINE BLOOD NEGATIVE (NEGATIVE); COLOR, URINE YELLOW (YELLOW); GLUCOSE, URINE (UA) AUTO NEGATIVE (NEGATIVE); KETONE, URINE AUTO NEGATIVE (NEGATIVE); LEUKOCYTE ESTERASE, URINE AUTO NEGATIVE (NEGATIVE); MUCUS, URINE SMALL (NEGATIVE); NITRITE, URINE AUTO NEGATIVE (NEGATIVE); PROTEIN, URINE AUTO NEGATIVE (NEGATIVE); RBC, URINE AUTO 1 /HPF (0-3); SPECIFIC GRAVITY URINE AUTO 1.018 (1.002-1.035); SQUAMOUS EPITHELIAL CELL UR AU 6 /HPF (0-6); UROBILINOGEN, URINE AUTO 0.2 mg/dL (0.0-2.0); WBC, URINE AUTO 0 /HPF (0-3)
== END ==
LOC: M LAB REF 11:32
PROVIDERS: ATTEND Nurse Practitioner Family
DX: N76.0 Acute vaginitis (principal)

== ENCOUNTER → 2022-12-29 | Outpatient (CLI) | payer OTHER ==
[2022-12-29 13:05] LABS: APPEARANCE, URINE HAZY (CLEAR); BACTERIA, URINE AUTO NEGATIVE (NEGATIVE); BILIRUBIN, URINE AUTO NEGATIVE (NEGATIVE); BLOOD, URINE BLOOD NEGATIVE (NEGATIVE); COLOR, URINE YELLOW (YELLOW); GLUCOSE, URINE (UA) AUTO NEGATIVE (NEGATIVE); KETONE, URINE AUTO TRACE mg/dL (NEGATIVE); LEUKOCYTE ESTERASE, URINE AUTO NEGATIVE (NEGATIVE); MUCUS, URINE SMALL (NEGATIVE); NITRITE, URINE AUTO NEGATIVE (NEGATIVE); PROTEIN, URINE AUTO NEGATIVE (NEGATIVE); RBC, URINE AUTO 1 /HPF (0-3); SPECIFIC GRAVITY URINE AUTO 1.024 (1.002-1.035); SQUAMOUS EPITHELIAL CELL UR AU 23 /HPF (0-6); UROBILINOGEN, URINE AUTO 0.2 mg/dL (0.0-2.0); WBC, URINE AUTO 0 /HPF (0-3)
[2022-12-29 13:08] LABS: BASO % 0.3 % (0.0-1.0); EOS % 0.7 % (0.0-3.0); HEMATOCRIT 35.2 % (36.0-47.0); LYMPH # 1.1 10^3/uL (1.5-5.0); LYMPH % 18.4 % (24.0-44.0); MEAN CORPUSCULAR HEMOGLOBIN 29.7 pg (27.0-33.0); MEAN CORPUSCULAR HGB CONC 34.1 g/dl (32.0-36.5); MEAN CORPUSCULAR VOLUME 87.1 fl (80.0-96.0); MONO # 0.3 10^3/uL (0.0-0.8); MONO % 5.1 % (2.0-8.0); NEUTROPHILS # 4.4 10^3/uL (1.5-8.5); NEUTROPHILS % 75.3 % (36.0-66.0); PLATELET COUNT, AUTOMATED 275 10^3/uL (150-450); RED BLOOD COUNT 4.04 10^6/uL (4.00-5.40); WHITE BLOOD COUNT 5.9 10^3/uL (4.0-10.0)
[2022-12-29 13:33] LABS: HEMOGLOBIN A1c 5.4 % (4.0-6.0)
[2022-12-29 13:33] LABS: ALBUMIN 3.8 G/DL (3.2-5.2); ALKALINE PHOSPHATASE 68 U/L (46-116); ALT/SGPT 12 U/L (7.0-40); AST/SGOT < 8 U/L (<34); BILIRUBIN,TOTAL 0.3 MG/DL (0.3-1.2); BLOOD UREA NITROGEN 12 MG/DL (9-23); CALCIUM LEVEL 9.2 MG/DL (8.5-10.1); CARBON DIOXIDE LEVEL 24 MMOL/L (20-31); CHLORIDE LEVEL 109 MMOL/L (98-107); CHOLESTEROL LEVEL 163 MG/DL (<200); CHOLESTEROL RISK RATIO 2.68 (<5); CREATININE FOR GFR 0.68 MG/DL (0.55-1.30); GLOMERULAR FILTRATION RATE > 60.0 (>60); GLUCOSE, FASTING 91 MG/DL (60-100); HDL CHOLESTEROL 60.7 MG/DL (>40); LDL CHOLESTEROL 93.1 MG/DL (<100); NON-HDL-C 102.3 MG/DL; POTASSIUM SERUM 3.8 MMOL/L (3.5-5.1); SODIUM LEVEL 142 MMOL/L (136-145); TOTAL PROTEIN 6.7 G/DL (5.7-8.2); TRIGLYCERIDES LEVEL 46 MG/DL (<150)
[2022-12-29 13:35] LABS: THYROID STIMULATING HORMONE 0.487 uIU/ML (0.55-4.78); TOTAL 25(OH) VITAMIN D 34.4 NG/ML (20.0-100.0)
== END ==
LOC: M LAB 12:22
PROVIDERS: ATTEND Nurse Practitioner Family
DX: N76.0 Acute vaginitis (principal); R53.83 Other fatigue; E55.9 Vitamin D deficiency, unspecified; E66.3 Overweight

== ENCOUNTER → 2023-03-29 | Outpatient (CLI) | payer OTHER | LOC: M LAB 11:25 | PROVIDERS: ATTEND Nurse Practitioner Family | DX: R89.1 Abnormal level of hormones in specimens from other organs, systems and tissues (principal); Z53.9 Procedure and treatment not carried out, unspecified reason ==

== ENCOUNTER → 2023-04-05 | Outpatient (CLI) | payer OTHER ==
[2023-04-05 16:38] LABS: THYROID STIMULATING HORMONE 0.747 uIU/ML (0.55-4.78)
[2023-04-05 17:38] LABS: HEPATITIS C VIRUS ABY INDEX > 11.00 INDEX (<0.8)
[2023-04-05 18:09] LABS: HIV 1&2 SCREEN NEGATIVE (NEGATIVE)
== END ==
LOC: M LAB 14:52
PROVIDERS: ATTEND Nurse Practitioner Family
DX: R89.1 Abnormal level of hormones in specimens from other organs, systems and tissues (principal)

== ENCOUNTER → 2023-08-31 | Outpatient (CLI) | payer OTHER | LOC: M LAB 09:20 | PROVIDERS: ATTEND Physician Assistant | DX: Z02.1 Encounter for pre-employment examination (principal) ==

== ENCOUNTER → 2024-03-01 | Outpatient (CLI) | payer OTHER ==
[2024-03-01 15:53] LABS: BASO % 0.7 % (0.0-1.0); EOS # 0.3 10^3/uL (0.0-0.5); EOS % 4.7 % (0.0-3.0); HEMATOCRIT 38.9 % (36.0-47.0); HEMOGLOBIN 13.7 g/dl (12.0-15.5); LYMPH # 1.7 10^3/uL (1.5-5.0); LYMPH % 30.3 % (24.0-44.0); MEAN CORPUSCULAR HEMOGLOBIN 31.8 pg (27.0-33.0); MEAN CORPUSCULAR HGB CONC 35.2 g/dl (32.0-36.5); MEAN CORPUSCULAR VOLUME 90.3 fl (80.0-96.0); MONO # 0.3 10^3/uL (0.0-0.8); NEUTROPHILS # 3.3 10^3/uL (1.5-8.5); NEUTROPHILS % 57.9 % (36.0-66.0); PLATELET COUNT, AUTOMATED 283 10^3/uL (150-450); RED BLOOD COUNT 4.31 10^6/uL (4.00-5.40); WHITE BLOOD COUNT 5.7 10^3/uL (4.0-10.0)
[2024-03-01 16:12] LABS: HEPATITIS B SURFACE ANTIBODY POSITIVE (POSITIVE); THYROID STIMULATING HORMONE 0.968 uIU/ML (0.55-4.78)
[2024-03-01 16:17] LABS: ALBUMIN 3.7 G/DL (3.2-5.2); ALKALINE PHOSPHATASE 80 U/L (46-116); ALT/SGPT 16 U/L (7.0-40); AST/SGOT 12 U/L (<34); BILIRUBIN,TOTAL 0.4 MG/DL (0.3-1.2); BLOOD UREA NITROGEN 12 MG/DL (9-23); CALCIUM LEVEL 9.2 MG/DL (8.5-10.1); CARBON DIOXIDE LEVEL 24 MMOL/L (20-31); CHLORIDE LEVEL 110 MMOL/L (98-107); CHOLESTEROL LEVEL 206 MG/DL (<200); CHOLESTEROL RISK RATIO 4.48 (<5); GLOMERULAR FILTRATION RATE > 60.0 (>60); GLUCOSE, FASTING 91 MG/DL (60-100); HDL CHOLESTEROL 45.9 MG/DL (>40); LDL CHOLESTEROL 130.5 MG/DL (<100); NON-HDL-C 160.1 MG/DL; SODIUM LEVEL 139 MMOL/L (136-145); TOTAL PROTEIN 6.8 G/DL (5.7-8.2); TRIGLYCERIDES LEVEL 148 MG/DL (<150)
[2024-03-02 13:26] LABS: HERPES ZOSTER, VARICELLA IgG 1.51 S/CO (>=1.00); MUMPS VIRUS IgG ANTIBODY 16.5 AU/mL (>10.99)
== END ==
LOC: M LAB 13:32
PROVIDERS: ATTEND Nurse Practitioner Family
DX: Z23 Encounter for immunization (principal); R89.1 Abnormal level of hormones in specimens from other organs, systems and tissues; E66.3 Overweight; R53.83 Other fatigue

== ENCOUNTER → 2024-06-20 | Outpatient (REF) | payer OTHER | LOC: M LAB REF 12:18 | PROVIDERS: ATTEND Physician Assistant Medical | DX: R05.9 Cough, unspecified (principal); R50.9 Fever, unspecified ==

== ENCOUNTER 2024-07-28 07:47 | Day surgery (SDC) | payer OTHER ==
[~2024-07-28] VITALS: Ht 154.9 cm; Wt 85.7 kg
[~2024-07-28 07:47] MED LIST changes: +PANT40TA29 PO; +VALA1TAB5 PO
[2024-07-28] MEDS ORDERED: propofoL 200 MG/20 ML VIAL As Ordered ONE (08:58)
[2024-07-28] MEDS ORDERED: LIDOCAINE 2% 100MG/5ML SDV (FOR ANES.) As Ordered ONE (08:58)
[2024-07-28 09:10] VITALS: TEMP 97
[2024-07-28 09:33] VITALS: BP 115/65; O2SAT 95
== END 2024-07-28 09:34 | disposition home or self-care (01) ==
LOC: M OPP 07:47
PROVIDERS: ATTEND Surgery
DX: K44.9 Diaphragmatic hernia without obstruction or gangrene (principal); K22.89 Other specified disease of esophagus; Z79.899 Other long term (current) drug therapy; F17.210 Nicotine dependence, cigarettes, uncomplicated

== ENCOUNTER → 2025-03-02 | Outpatient (CLI) | payer OTHER, SELFPAY ==
[2025-03-05 10:52] LABS: RUBEOLA IgG ANTIBODY 73.10 AU/mL (>16.49)
== END ==
LOC: M LAB 10:35
PROVIDERS: ATTEND Physician Assistant
DX: Z02.1 Encounter for pre-employment examination (principal)